=== PATIENT | male | born 1955 | race Caucasian/White ===

== ENCOUNTER 2016-06-22 06:37 | Outpatient (CLI) | payer BC ==
[~2016-06-22] VITALS: Ht 177.8 cm; Wt 91.8 kg
--- NOTE | ~2016-06-22 | HEMODYNAMI ---
PATIENT:PETEY RANGEL MEDICAL RECORD: [id number] : 53 LOCATION:D.CAT ADMISSION DATE: 06/22/16 Generatedon:06/22/20168:50 Patient name: PETEY RANGEL Patient #: [id number] : 1955 Date of study: 06/22/2016 Page: Of Hemodynamic Procedure Report Patient Data Patient Demographics Procedure consent was obtained First Name: PETEY Gender: Male Last Name: CLAIRE : 1955 Middle Initial: VAISHALI Age: 60 year(s) Patient #: [id number] Race: SSN: [id number] Additional ID: [id number] Contact details Address: [address] [address] State: [place] City: [place] Zip code: [address] Past Medical History Allergies Allergen Reaction Date Comments Reported Other allergy 06/22/2015 Codeine Other allergy 06/22/2016 codeine, hydrocodone Admission Admission Data Admission Date: 06/22/2016 Admission Time: 6:37 Arrival Date: 06/22/2016 Arrival Time: 8:30 Admit Source: Other Insurance Payor: Private health insurance Height (in.): 70 BSA: 2.1 (m2) Height (cm.): 177.8 BMI: 28.98 (kg/m2) Weight (lbs.): 202 Weight (kg.): 91.63 Lab Results Lab Result Date: 06/22/2016 Lab Result Time: 0:00 Biochemistry Name Units Result Min Max BUN mg/dl 15 --(--*-)-- 7 18 Creatinine mg/dl 1 --(--*-)-- 0.6 1.3 CBC Name Units Result Min Max Hemoglobin g/dl 14.4 --(*---)-- 13.5 17.5 Procedure Procedure Types Cath Procedure Diagnostic Procedure [facility] w/Coronaries PCI Procedure Coronary Stent Initial Procedure Description Procedure Date Procedure Date: 06/22/2016 Procedure Start Time: 8:28 Procedure End Time: 8:42 Procedure Staff Name Function Anuel Lane MD Performing Physician Bhumi Jerome RT Scrub Heidy Smith RN Nurse Cher Smith RT Monitor Indication Angina Procedure Data Cath Procedure Fluoroscopy Diagnostic fluoroscopy Total fluoroscopy Time: 5.1 time: 5.1 min min Diagnostic fluoroscopy Total fluoroscopy dose: dose: 1039 mGy 1039 mGy Contrast Material Contrast Material Type Amount (ml) Isovue 370 82 Entry Location Entry Primary Successful Side Size Upsize Upsize Entry Closure Daley ccessful Closure Location (Fr) 1 (Fr) 2 (Fr) Remarks Device Remarks Radial Right 6 Fr Mechanical artery Short Compression Estimated blood loss: 5 ml Diagnostic catheters Device Type Used For End Catheter Placement Terumo 5Fr Julio 110cm Multi-vessel catheter Angiography Procedure Complications No complications Procedure Medications Medication Administration Route Dosage Oxygen NC 2 l/min Heparin Flush Bag added to field 2 bags (1000units/500ml NS) Lidocaine 2% added to field 20 Radial Cocktail added to field 1 syringe (Verapomil 2mg/Nitro 400mcg/Heparin 1500units) Benadryl I.V. 50 mg Versed I.V. 1 mg Fentanyl I.V. 50 mcg Versed I.V. 1 mg Fentanyl I.V. 50 mcg Radial Cocktail I.A. 1 syringe (Verapomil 2mg/Nitro 400mcg/Heparin 1500units) Versed I.V. 1 mg Fentanyl I.V. 50 mcg Heparin Bolus I.V. 4000 units Versed I.V. 1 mg Fentanyl I.V. 50 mcg Fentanyl I.V. 50 mcg Hemodynamics Rest BSA: 2.1 (m2) HGB: 14.4 (g/dl) O2 Consumption: Estimated: 246.13 (ml/min) O2 Con sumption indexed: Estimated:117.2 (ml/min/m) Heart Rate: 70 (bpm) Pressure Samples Time Site Value (mmHg) Purpose Heart Use Rate(bpm) 8:30 LV 53/-12,0 Snapshot 70 Snapshots Pre Cath Intra NCS Post Cath Vital Signs Time Heart Resp SPO2 NIBP (mmHg) Rhythm Pain Sedation Rate (ipm) (%) Status Level (bpm) 8:18:33 68 40 100 136/76(118) NSR 0 (11) 10(A) , No pain 8:22:51 71 12 100 138/72(119) NSR 0 (11) 10(A) , No pain 8:27:09 65 55 100 120/68(100) NSR 0 (11) 10(A) , No pain 8:31:23 68 19 96 104/64(81) NSR 0 (11) 10(A) , No pain 8:35:31 72 16 95 114/64(87) NSR 0 (11) 9(A) , No pain 8:39:43 90 19 99 106/64(88) NSR 0 (11) 9(A) , No pain Medications Time Medication Route Dose Verified Delivered Reason Notes Effectiveness by by 8:22:48 Oxygen NC 2 l/min Anuel Heidy Per physician Domingo Smith RN 8:23:08 Heparin Flush added 2 bags Anuel Grafrey used for Bag to Domingo Lane MD procedure (1000units/500ml field NS) 8:23:15 Lidocaine 2% added 20ml Anuelcosme Agee used for to vial Domingo Lane MD procedure field 8:23:20 Radial Cocktail added 1 Anuel Anuel used for (Verapomil to syringe Domingo Lane MD procedure 2mg/Nitro field 400mcg/Heparin 1500units) 8:23:28 Benadryl I.V. 50 mg Anuel Heidy Per physician Domingo Smith RN 8:26:20 Versed I.V. 1 mg Anuel Heidy for sedation Domingo Smith RN 8:26:28 Fentanyl I.V. 50 mcg Anuel Heidy for sedation Domingo Smith RN 8:28:13 Versed I.V. 1 mg Anuel Heidy for sedation Domingo Smith RN 8:28:16 Fentanyl I.V. 50 mcg Anuel Heidy for sedation Domingo Smith RN 8:29:27 Radial Cocktail I.A. 1 Anuel Anuel for (Verapomil syringe Domingo Lane MD vasodilation 2mg/Nitro 400mcg/Heparin 1500units) 8:29:58 Versed I.V. 1 mg Anuel Heidy for sedation Domingo Smith RN 8:30:04 Fentanyl I.V. 50 mcg Anuel Heidy for sedation Domingo Smith RN 8:31:00 Fentanyl I.V. 50 mcg Anuel Heidy for sedation Domingo Smith RN 8:31:54 Versed I.V. 1 mg Anuel Heidy for sedation Domingo Smith RN 8:33:18 Heparin Bolus I.V. 4000 Anuel Louisecca for dose units Domingo Smith RN anticoagulation verified with dr lane 8:35:06 Fentanyl I.V. 50 mcg Anuel Louisecca for sedation Domingo Smith RN Procedure Log Time Note 8:00:34 Heidy Smith RN sent for patient. Start room use. 8:11:55 Informed consent obtained and on chart 8:12:02 Diagnostic Cath Status : Elective 8:12:43 Indication : Angina 8:12:53 Admit Source: Other 8:13:03 Arrival Date: 06/22/2016 8:30:00 AM 8:13:12 Insurance Payor : Private health insurance 8:13:25 Patient Height : 177.8 inches 8:13:30 Patient Weight : 91.63 lbs 8:13:40 Time tracking: Regular hours 8:13:44 Plan of Care:Hemodynamics will remain stable., Cardiac rhythm will remain stable., Comfort level will be maintained., Respiratory function will remain adequate., Patient/ family verbilizes understanding of procedure., Procedure tolerated without complication., Recovers from procedure without complications.. 8:13:48 Patient received from Outpatients to [facility] 1 Alert and oriented. Tansferred to table in Supine position. 8:13:49 Warm blankets applied, and amparo hugger turned on for patient comfort. 8:13:49 Correct patient and procedure confirmed by team. 8:13:50 ECG and BP/O2 sat monitors applied to patient. 8:17:18 Vital chart was started 8:19:45 Baseline sample Acquired. 8:19:48 Rhythm: sinus rhythm 8:19:49 Full Disclosure recording started 8:19:57 H&P Date Dictated: 06/19/2016 Within 30 days and on chart., H&P Addendum completed by physician on day of procedure. (MUST COMPLETE FOR ALL OUTPATIENTS). 8:19:58 Pre-procedure instructions explained to patient. 8:19:59 Pre-op teaching completed and patient verbalized understanding. 8:20:01 Family in waiting room. 8:20:02 Patient NPO since Midnight. 8:20:20 Patient allergic to Other allergycodeine, hydrocodone 8:22:48 Oxygen 2 l/min NC was given by Heidy Smith RN; Per physician; 8:23:08 Heparin Flush Bag (1000units/500ml NS) 2 bags added to field was given by Anuel Lane MD; used for procedure; 8:23:15 Lidocaine 2% 20ml vial added to field was given by Anuel Lane MD; used for procedure; 8:23:20 Radial Cocktail (Verapomil 2mg/Nitro 400mcg/Heparin 1500units) 1 syringe added to field was given by Anuel Lane MD; used for procedure; 8:23:28 Benadryl 50 mg I.V. was given by Heidy Smith RN; Per physician; 8:24:32 Is the patient allergic to Iodine/contrast media? No. 8:24:33 Was the patient premedicated? No 8:24:34 Is patient on blood thinner?Yes 8:24:36 ACC The patient was administered the following blood thiners within the last 24 hours: ACCPlavix 8:24:38 Patient diabetic? No. 8:24:41 Previous problem with sedation/anesthesia? No ? 8:24:43 Snore? Yes 8:24:45 Sleep apnea? No 8:24:47 Deviated septum? No 8:24:48 Opens mouth fully? Yes 8:24:49 Sticks out tongue? Yes 8:25:10 Airway obstruction? No ? 8:25:12 Dentures? No ? 8:25:15 Pre procedure: right dorsailis pedis pulse 1+ Palpable, but thready & weak; easily obliterated 8:25:18 Patient pain scale 0/10 ?. 8:25:23 IV patent on arrival in left forearm with 0.9% NaCl at [facility]. 8:25:40 Lab Result : BUN 15 mg/dl 8:25:40 Lab Result : Creatinine 1 mg/dl 8:25:40 Lab Result : Hemoglobin 14.4 g/dl 8:25:44 Lab results completed and on chart. 8:25:49 Right Radial & Right Groin area was prepped with chlora-prep and draped in sterile fashion 8:25:49 Alarms reviewed by Meghan Cummins 8:25:50 Sharps counted by scrub and verified by R.N. 8:25:51 Physician paged 8:25:54 Physician arrived 8::13 --------ALL STOP TIME OUT------ 8::14 Final Timeout: patient, procedure, and site verified with staff and physician. All members of the team are in agreement. 8:26:16 Right Radial & Right Groin site verified by team. 8::18 Physical assessment completed. ASA score P 2 - A patient with mild systemic disease as per Anuel Lane MD. 8::20 Versed 1 mg I.V. was given by Heidy Smith RN; for sedation; 8::22 Sedation plan: IV Moderate Sedation Versed, Fentanyl 8::28 Fentanyl 50 mcg I.V. was given by Heidy Smith RN; for sedation; 8::13 Versed 1 mg I.V. was given by Heidy Smith RN; for sedation; 8::16 Fentanyl 50 mcg I.V. was given by Heidy Smith RN; for sedation; 8::28 Zero performed for pressure channel P1 8:28:36 Procedure started. 8:28:41 Local anesthetic to right radial artery with Lidocaine 2% by Anuel Lane MD.INITIAL ACCESS ONLY 8:28:50 A 6 Fr Short sheath was inserted into the Right Radial artery 8:29:27 Radial Cocktail (Verapomil 2mg/Nitro 400mcg/Heparin 1500units) 1 syringe I.A. was given by Anuel Lane MD; for vasodilation; 8:29:38 A Terumo 5Fr Julio 110cm catheter was advanced over the wire and used for Multi-vessel Angiography. 8:29:58 Versed 1 mg I.V. was given by Heidy Smith RN; for sedation; 8:30:04 Fentanyl 50 mcg I.V. was given by Heidy Smith RN; for sedation; 8:30:09 LV hemodynamics recorded. 8:30:11 LV gram done using BRAR 8:30:15 EF : 60 % 8:30:19 LCA angiography performed. 8::22 Injector settings: Ml/sec: 3, Volume: 6, 8:30:25 Use device set Radial Dx 8:30:26 Acist Syringe opened to sterile field. 8:30:27 Cardinal Cath Pack opened to sterile field. 8:30:27 Bag Decanter opened to sterile field. 8:30:28 Terumo 6Fr Slender Glidesheath opened to sterile field. 8:30:28 St Satnam 260cm J .035 wire opened to sterile field. 8:30:28 Acist Hand Control opened to sterile field. 8:30:29 Acist Manifold opened to sterile field. 8:30:30 Tegaderm 4 x 4 opened to sterile field. 8:31:00 Fentanyl 50 mcg I.V. was given by Heidy Smith RN; for sedation; 8:31:44 Mendiola Whisper J 300cm 0.014 guide wire opened to sterile field. 8:31:45 College Book Renter BasixCompak Inflation Kit opened to sterile field. 8:31:54 Versed 1 mg I.V. was given by Heidy Smith RN; for sedation; 8:32:13 Cordis 6FR XBLAD 3.5 guide catheter opened to sterile field. 8:33:18 Heparin Bolus 4000 units I.V. was given by Heidy Smith RN; for anticoagulation; dose verified with dr lane 8:33:56 RCA angiography performed. 8:34:00 Injector settings: Ml/sec: 3, Volume: 6, 8:34:03 Catheter removed. 8:34:05 Proceeding to intervention. 8:34:13 6 Fr xblad 3.5 guide catheter was inserted over the wire 8:34:18 whisper wire advanced. 8:34:19 Wire advanced across lesion. 8:35:06 Fentanyl 50 mcg I.V. was given by Heidy Smith RN; for sedation; 8:36:23 Inflation number: 1 A [place] Sci [place] 2.5 X 15 balloon was prepped and advanced across the Mid LAD, then inflated to 6 JANNETH for 0:10 (min:sec). 8:36:51 Inflation number: 2 The [place] Sci [place] 2.5 X 15 balloon was reinflated across the Mid LAD, to 9 JANNETH for 0:10 (min:sec). 8:37:07 Balloon removed over the wire. 8:38:32 Inflation Number: 3 A CDB Infotektronic Resolute 2.5 X 14 stent was prepped and advanced across the Mid LAD. The stent was deployed at 17 JANNETH for 0:10 (min:sec). 8:38:57 Inflation number: 4 The stent balloon was then re-inflated across the Mid LAD to 19 JANNETH for 0:10 (min:sec). 8:40:36 Stent catheter was removed intact over wire. 8:40:37 Wire removed. 8:40:37 Guide catheter removed. 8:40:47 Terumo TR Band Standard opened to sterile field. 8:40:58 Sheath removed intact; hemostasis achieved with Mechanical Compression to the Right Radial artery. 8:41:00 Procedure ended.(Physican Out) 8:41:11 Fluoroscopy time 05.10 minutes. 8:41:15 Fluoroscopy dose: 1039 mGy 8:41:15 Flurop Dose total: 1039 8:41:19 Contrast amount:Isovue 370 82ml. 8:41:22 Sharps counted by scrub and verified by R.N. 8:41:24 Insertion/operative site no bleeding no hematoma. 8:41:27 TR band inflated with 10cc of air. 8:41:32 Post right radial artery:stable 8:41:34 Post Procedure Pulses reassessed and unchanged 8:41:37 Post procedure rhythm: unchanged. 8:41:39 Estimated blood loss: 5 ml 8:41:40 Post procedure instruction explained to patient.Patient verbalizes understanding. 8:41:41 Patient needs reinforcement of post procedure teaching. 8:41:47 Procedure type changed to Cath procedure, Diagnostic procedure, LHC, LHC w/Coronaries, PCI procedure, Coronary Stent Initial 8:41:48 Procedure and supply charges have been captured, reviewed, submitted and are correct. 8:41:52 Procedure Complication : No complications 8:41:53 Vital chart was stopped 8:41:54 See physician's report for complete and final results. 8:41:57 Report given to Post Procedure Room. 8:42:04 Patient transfered to Post Procedure Room with Stretcher. 8:42:06 Procedure ended. 8:42:06 Full Disclosure recording stopped 8:45:23 ACC-PCI Only Patient was given prescriptions, or instructed by Anuel Lane MD to start/continue the following medications upon discharge: Plavix 8:45:24 End room use (Document Last) Intervention Summary Intervention Notes Time ActionType Lesion and Equipment Action# Pressure Duration Attributes Used 8:36:23 Inflate Mid LAD [place] 1 6 00:10 balloon Sci [place] 2.5 X 15 balloon 8:36:51 Reinflate Mid LAD [place] 2 9 00:10 balloon Sci [place] 2.5 X 15 balloon 8:38:32 Place stent Mid LAD Medtronic 3 17 00:10 Resolute 2.5 X 14 stent 8:38:57 Reinflate Mid LAD Medtronic 4 19 00:10 stent Resolute balloon 2.5 X 14 stent Device Usage Item Name Manufacture Quantity Catalog Number Hospital Part Current Mini mal Lot# / Charge Number Stock Stock Serial# Code Terumo 5Fr Terumo 1 [id number] 806108 614641 5 Julio 110cm catheter Acist Acist 1 94229 925043 880264 921081 20 Syringe Medical Systems Inc Cardinal Cardinal 1 [id number] 634467 32868 012244 5 Cath Pack Health Bag Microtek 1 2002S 164771 20902 285637 5 [employer] Inc. Terumo 6Fr Terumo 1 [id number] 510165 443470 293769 [address] St Satnam 1 568858 570733 761125 336858 30 260cm J .035 wire Acist Hand Acist 1 66437 492223 861674 069916 5 Control Medical Systems Inc Acist Acist 1 50866 849999 633450 404275 5 Manifold Medical Systems Inc Tegaderm 4 3M 1 1626W 434947 180065 333240 5 x 4 Mendiola Mendiola 1 [id number] 822611 252125 667130 5 Whisper J Vascular 300cm 0.014 guide wire Merit Merit 1 CT2126 148117 383346 447608 15 Pulmocide Medical Inflation Kit Cordis 6FR Cardinal 1 [id number] 092201 327547 392106 10 XBLAD 3.5 Health guide catheter [place] Sci [place] 1 [id number] 760169 464712 838285 1 [id number] [place] Scientific 2.5 X 15 balloon Medtronic Medtronic 1 [id number] 556515 662663 5 [id number] Resolute 2.5 X 14 stent Terumo TR Terumo 1 [id number] 618652 082764 886215 40 Band Standard Signature Audit [place] Stage Time Signature Unsigned Intra-Procedure 06/22/2016 Cher Smith 8:49:48 AM RT(R) Signatures Monitor : Cher Smith RT Signature : Date : Time : [id number] [place] [address]
[~2016-06-22 06:37] MED LIST: BAYER CHEWABLE81 MG PO; CELEXA20 MG PO; FISH OIL 1,0001 CA1 PO; FLAXSEED OIL1000 MG PO; GEMFIBROZIL600 MG PO; LEVOTHROID75 MCG PO; MULTI-DAY VITAM1 TAB PO; NITROQUICK0.4 MG; NITROQUICK0.4 MG SL; PEPCID AC20 MG PO; PLAVIX75 MG PO; PRAVACHOL20 MG PO; PREVACID15 MG PO; PROBIOTIC1 EAC1 PO; REMERON30 MG/UDTA PO; ULTRAM50 MG PO
[2016-06-22] MEDS ORDERED: RANEXA500 MG PO (07:20)
[2016-06-22] MEDS ORDERED: [UNRECOGNIZED DRUG - OTHER] (07:21)
[2016-06-22 07:26] VITALS: BP 114/70; Ht 177.8 cm; Wt 91.8 kg
[2016-06-22 07:32] LABS: BASOPHILS 0.6 % (0.0-2.0); EOSINOPHILS 2.4 % (0-7); HEMATOCRIT 42.3 % (42.0-54.0); HEMOGLOBIN 14.4 g/dL (13.5-17.5); IMMATURE GRANULOCYTES 0.2 % (0-5); MCH 32.8 pg (26.0-34.0); MCV 96.4 fL (80.0-100.0); MEAN PLATELET VOLUME 9.6 fL (7.4-10.4); MONOCYTES 10.9 % (2-11); NEUTROPHILS 49.9 % (40-80); PLATELET COUNT 218 10x3/uL (130-400); RBC 4.39 10x6/uL (4.20-6.10); RDW 12.6 % (11.5-14.5); WBC 5.1 10x3/uL (4.8-10.8)
[2016-06-22 07:42] LABS: CALC OSMOLALITY 281 mosm/kg (275-300); CALCIUM 9.3 mg/dL (8.5-10.1); CARBON DIOXIDE 34.1 mmol/L (21.0-32.0); CHLORIDE - SERUM 104 mmol/L (98-107); GLUCOSE 91 mg/dL (74-106); SODIUM 141 mmol/L (136-145); UREA NITROGEN 15 mg/dL (7-18); eGFR NON AFRICAN AMERICAN 81 mL/min (90-120)
--- NOTE | 2016-06-22 09:05 | NUR ---
0905 HR 64 SR WITH CHEST PAIN DENIED. BP 121/68 TR BAND TO R/WRIST CDI NO BLEEDING NO HEMATOMA NOTED. INSTRUCTED PATIENT TO KEEP R/ARM STRAIGHT NO BENDING OR FLEXING 0930 VSS WITH CHEST PAIN DENIED TOLERATING ORAL FLUIDS. TR BAND TO R/WRIST CDI NO BLEEDING NO HEMATOMA NOTED FAMILY AT SIDE
--- NOTE | 2016-06-22 09:48 | NUR ---
SITTING WITH HOB UP 30 DEGREES TALKING TO FAMILY VSS WITH CHEST PAIN DENIED TR BAND TO R/WRIST CDI NO BLEEDING NO HEMATOMA NOTED WILL MONITOR
--- NOTE | 2016-06-22 10:45 | NUR ---
NO CHANGE IN ASSESSMENT TR BAND REMAINS CDI NO BLEEDING NO HEMATOMA NOTED FAMILY SIDE
--- NOTE | 2016-06-22 11:45 | NUR ---
1145 RESTING QUIETLY WITH EYES CLOSED NO DISTRESS NOTED VSS TR BAND TO R/WRIST CDI NO BLEEDING NO HEMATOMA NOTED
--- NOTE | 2016-06-22 12:22 | NUR ---
PATIENT SLEEPING QUIETLY WITH NO DISTRESS NOTED. 4 CC AIR REMOVED FROM TR BAND WITH NO BLEEDING NO HEMATOMA NOTED. CHEST PAIN IS DENIED
--- NOTE | 2016-06-22 12:47 | NUR ---
PIV REMOVED FROM LEFT ARM WITH DRESSING APPLIED. PATIENT UP TO BATHROOM VOIDS WITH OUT C/O
--- NOTE | 2016-06-22 12:58 | NUR ---
VERBAL AND WRITTEN DISCHARGE GONE OVER WITH PATIENT AND BOTH VERBALIZE UNDERSTANDING. TR BAND REMOVED WITH DRESSING APPLIED NO BLEEDING NO HEMATOMA NOTED CHEST PAIN IS DENIED LEFT VIA WC TO [facility] FOR TO TRANSPORT HOME
--- NOTE | 2016-06-25 14:16 | OP ---
PATIENT NAME: PETEY RANGEL MEDICAL RECORD: [id number] :53 LOCATION:D.CAT ADMISSION DATE: SURGEON: ABDI BETANCOURT MD DATE OF OPERATION: 06/22/2016 PROCEDURES: 1. PTCA stent LAD. 2. Left heart catheterization. 3. Selective coronary angiography. 4. Left ventriculogram. INDICATION: Angina and coronary artery disease. PROCEDURE IN DETAIL: After informed consent was obtained and after detailed explanation of risks, benefits as well as alternative therapies, the patient elected to proceed with angiogram and angioplasty. The right radial area was prepped and draped in normal sterile fashion. The right radial artery was cannulated via modified Seldinger technique with placement of 6-Moldovan sheath. All catheters were exchanged through this sheath. FINDINGS: The left ventriculogram was performed in a standard 30-degree BRAR view. It reveals good cardiac wall motion throughout all segments. Overall ejection fraction is 60%. SELECTIVE CORONARY ANGIOGRAPHY: 1. Left main is with no significant angiographic disease. 2. Left anterior descending has previously placed stents. There is an area of 95% in-stent restenosis. 3. Left circumflex has mild irregularities, but no flow-limiting stenosis. 4. Right coronary has at least a 70% stenosis in the proximal vessel. PTCA STENT OF THE LAD: The stent used is a 2.5 x 14 mm Resolute. Result was 0% residual stenosis. OVERALL IMPRESSION: Successful PTCA stent of the LAD going from 95% initial stenosis to 0% residual. TRANSINT:[id number] Voice Confirmation ID: [id number] DOCUMENT ID: [id number] ABDI BETANCOURT MD at 1416 CC: [id number] DICTATION DATE: 06/22/16 0845 OPERATIONS EXPERT: 06/22/16 1958 [facility] CLI 06/22/16 [facility] [address] [id number]
== END 2016-06-22 13:01 | disposition home or self-care (01) ==
LOC: D.CATH 06:37
PROVIDERS: Internal Medicine Interventional Cardiology
DX: I25.110 Atherosclerotic heart disease of native coronary artery with unstable angina pectoris (principal); I10 Essential (primary) hypertension; E78.5 Hyperlipidemia, unspecified; K21.9 Gastro-esophageal reflux disease without esophagitis

== ENCOUNTER 2016-06-25 06:38 | Outpatient (CLI) | payer BC ==
[~2016-06-25] VITALS: Ht 177.8 cm; Wt 90.9 kg
--- NOTE | ~2016-06-25 | HEMODYNAMI ---
PATIENT:PETEY RANGEL MEDICAL RECORD: [id number] : 53 LOCATION:[facility] ADMISSION DATE: 06/25/16 Generatedon:06/25/20169:29 Patient name: PETEY RANGEL Patient #: [id number] : 1955 Date of study: 06/25/2016 Page: Of Hemodynamic Procedure Report Patient Data Patient Demographics Procedure consent was obtained First Name: PETEY Gender: Male Last Name: CLAIRE : 1955 Middle Initial: VAISHALI Age: 61 year(s) Patient #: [id number] Race: SSN: [id number] Additional ID: [id number] Contact details Address: [place] [address] State: [place] City: [place] Zip code: [address] Past Medical History Allergies Allergen Reaction Date Comments Reported Other allergy 06/22/2015 Codeine Other allergy 06/22/2016 codeine, hydrocodone Admission Admission Data Admission Date: 06/25/2016 Admission Time: 6:38 Admit Source: Other Lab Results Lab Result Date: 06/25/2016 Lab Result Time: 0:00 Biochemistry Name Units Result Min Max Creatinine mg/dl 0.9 --(-*--)-- 0.6 1.3 CBC Name Units Result Min Max Hemoglobin g/dl 14.4 --(*---)-- 13.5 17.5 Procedure Procedure Types Cath Procedure Diagnostic Procedure FFR/IVUS Intra-Coronary IVUS Initial PCI Procedure Coronary Stent Initial Procedure Description Procedure Date Procedure Date: 06/25/2016 Procedure Start Time: 9:08 Procedure End Time: 9:28 Procedure Staff Name Function Anuel Lane MD Performing Physician Roderick Izquierdo RT Scrub Mony Long RN Nurse Kyle Garcia RT Drywall Sprayer Michaela Lacey RT Monitor Procedure Data Cath Procedure Fluoroscopy Diagnostic fluoroscopy Total fluoroscopy Time: 3.5 time: 3.5 min min Diagnostic fluoroscopy Total fluoroscopy dose: 281 dose: 281 mGy mGy Contrast Material Contrast Material Type Amount (ml) Isovue 300 57 Entry Location Entry Primary Successful Side Size Upsize Upsize Entry Closure Daley ccessful Closure Location (Fr) 1 (Fr) 2 (Fr) Remarks Device Remarks Radial Right 6 Fr Mechanical artery Short Compression Estimated blood loss: 10 ml Procedure Complications No complications Procedure Medications Medication Administration Route Dosage Oxygen NC 2 l/min Benadryl I.V. 50 mg Lidocaine 2% added to field 20 Heparin Flush Bag added to field 2 bags (1000units/500ml NS) 0.9% NaCl I.V. 100 ml/hr Versed I.V. 2 mg Fentanyl I.V. 100 mcg Heparin Bolus I.V. 4000 units Versed I.V. 2 mg Fentanyl I.V. 100 mcg Fentanyl I.V. 25 mcg Hemodynamics Rest Heart Rate: 73 (bpm) Snapshots Pre Cath Intra NCS Post Cath Vital Signs Time Heart Resp SPO2 etCO2 [id number] NIBP (mmHg) Rhythm Pain Sedation Rate (ipm) (%) (mmHg) (mmHg) Status Level (bpm) 8:53:10 70 17 97 0 0 127/75(112) NSR 0 (11) 10(A) , No pain 8:57:18 71 19 96 0 0 141/82(122) NSR 0 (11) 10(A) , No pain 9:01:34 71 24 97 0 0 126/76(107) NSR 0 (11) 10(A) , No pain 9:05:48 65 17 99 0 0 122/65(103) NSR 0 (11) 10(A) , No pain 9:09:58 66 16 97 0 0 116/68(101) NSR 0 (11) 9(A) , No pain 9:14:08 69 17 93 0 0 109/64(84) NSR 0 (11) 9(A) , No pain 9:18:14 66 16 93 0 0 109/67(82) NSR 0 (11) 9(A) , No pain 9:22:19 83 16 95 0 0 130/74(103) NSR 0 (11) 9(A) , No pain 9:26:33 72 10 96 0 0 110/70(90) NSR 0 (11) 10(A) , No pain Medications Time Medication Route Dose Verified Delivered Reason Notes Effectiveness by by 8:57:57 Oxygen NC 2 Anuel Buffie used for l/min Domingo Long RN procedure 8:58:04 Benadryl I.V. 50 mg Anuel Buffie used for Domingo Long RN procedure 9:05:15 Lidocaine 2% added 20ml Anuel Buffie for local to vial Domingo Long RN anesthetic field 9:05:21 Heparin Flush added 2 Anuel Buffie used for Bag to bags Domingo Long RN procedure (1000units/500ml field NS) 9:05:36 0.9% NaCl I.V. 100 Anuel Buffie Per physician ml/hr Domingo Long RN 9:07:44 Versed I.V. 2 mg Anuel Buffie for sedation Domingo Long RN 9:07:50 Fentanyl I.V. 100 Anuel Buffie for sedation mcg Domingo Long RN 9:11:43 Heparin Bolus I.V. 4000 Anuel Buffie for verifie d units Domingo Long RN anticoagulation with dr lane 9:15:43 Versed I.V. 2 mg Anuel Buffie for sedation Domingo Long RN 9:15:47 Fentanyl I.V. 100 Anuel Buffie for sedation mcg Domingo Long RN 9:20:30 Fentanyl I.V. 25 Anuel Buffie for sedation mcg Domingo Long RN Procedure Log Time Note 8:32:04 Admit Source: Other 8:33:35 ACC Patient presents with Stable Angina CCS Anginal Class 2--Slight limitation of ordinary activity. 8:33:38 ACCPatient has been prescribed/administered the following anti-anginal medication within the last 2 weeks: None 8:33:42 Kyle Garcia RT(R) sent for patient. Start room use. 8:33:44 Time tracking: Regular hours 8:33:48 Plan of Care:Hemodynamics will remain stable., Cardiac rhythm will remain stable., Comfort level will be maintained., Respiratory function will remain adequate., Patient/ family verbilizes understanding of procedure., Procedure tolerated without complication., Recovers from procedure without complications.. 8:43:03 Patient received from Outpatients to [facility] 2 Alert and oriented. Tansferred to table in Supine position. 8:43:05 Warm blankets applied, and amparo hugger turned on for patient comfort. 8:43:06 Correct patient and procedure confirmed by team. 8:43:07 Signed procedure consent form obtained from patient. 8:43:08 ECG and BP/O2 sat monitors applied to patient. 8:51:59 Vital chart was started 8:52:00 Full Disclosure recording started 8:52:04 Rhythm: sinus rhythm 8:54:12 H&P Date Dictated: 06/25/2016 New H&P dictated by physician.. 8:54:14 Pre-procedure instructions explained to patient. 8:54:14 Pre-op teaching completed and patient verbalized understanding. 8:54:16 Family in waiting room. 8:54:26 Patient NPO since Midnight. 8:54:39 Is the patient allergic to Iodine/contrast media? No. 8:54:42 Is patient on blood thinner?Yes 8:54:53 ACC The patient was administered the following blood thiners within the last 24 hours: ACCPlavix 8:54:59 Patient diabetic? No. 8:57:00 Previous problem with sedation/anesthesia? No ? 8:57:02 Snore? No 8:57:04 Sleep apnea? No 8:57:05 Deviated septum? No 8:57:06 Opens mouth fully? Yes 8:57:07 Sticks out tongue? Yes 8:57:09 Airway obstruction? No ? 8:57:11 Dentures? No ? 8:57:15 Pre procedure: right dorsailis pedis pulse 2+ Normal; easily identifiable; not easily obliterated 8:57:18 Modified Rakesh's test Ulnar < 7 seconds 8:57:20 Patient pain scale 0/10 ?. 8:57:24 IV patent on arrival in left hand with 0.9% NaCl at KVO. 8:57:55 Lab Result : Creatinine 0.9 mg/dl 8:57:55 Lab Result : Hemoglobin 14.4 g/dl 8:57:57 Oxygen 2 l/min NC was given by Mony Long RN; used for procedure; 8:57:58 Lab results completed and on chart. 8:58:01 Right Radial & Right Groin area was prepped with chlora-prep and draped in sterile fashion 8:58:04 Benadryl 50 mg I.V. was given by Mony Long RN; used for procedure; 8:58:05 Alarms reviewed by R. N. 8:58:05 Sharps counted by scrub and verified by R.N. 8:58:14 Use device set Radial PCI 8:58:15 Acist Syringe opened to sterile field. 8:58:16 Acist Hand Control opened to sterile field. 8:58:16 Bag Decanter opened to sterile field. 8:58:16 Cardinal Cath Pack opened to sterile field. 8:58:17 Merit BasixCompak Inflation Kit opened to sterile field. 8:58:18 Terumo 6Fr Slender Glidesheath opened to sterile field. 8:58:18 St Satnam 260cm Straight .035 wire opened to sterile field. 8:58:19 Acist Manifold opened to sterile field. 8:58:22 Tegaderm 4 x 4 opened to sterile field. 8:58:37 [place] Whisper J 300cm 0.014 guide wire opened to sterile field. 8:59:11 Baseline sample Acquired. 9:03:44 Physician paged 9:05:15 Lidocaine 2% 20ml vial added to field was given by Mony Long RN; for local anesthetic; 9:05:21 Heparin Flush Bag (1000units/500ml NS) 2 bags added to field was given by Mony Long RN; used for procedure; 9:05:22 Final Timeout: patient, procedure, and site verified with staff and physician. All members of the team are in agreement. 9:05:26 Right Radial site verified by team. 9:05:34 Physical assessment completed. ASA score P 2 - A patient with mild systemic disease as per Anuel Lane MD. 9:05:36 0.9% NaCl 100 ml/hr I.V. was given by Mony Long RN; Per physician; 9:05:37 Sedation plan: IV Moderate Sedation Versed, Fentanyl 9:06:37 Zero performed for pressure channel P1 9:06:42 Zero performed for pressure channel P1 9:07:44 Versed 2 mg I.V. was given by Mony Long RN; for sedation; 9:07:50 Fentanyl 100 mcg I.V. was given by Mony Long RN; for sedation; 9:08:41 Procedure started. 9:08:47 Local anesthetic to right radial artery with Lidocaine 2% by Anuel Lane MD.INITIAL ACCESS ONLY 9:09:27 A 6 Fr Short sheath was inserted into the Right Radial artery 9:09:43 Medtronic Launcher 6Fr AR 1.0 SH guide catheter opened to sterile field. 9:09:43 [place] IVUS Catheter opened to sterile field. 9:10:38 6 Fr AR 1 SH guide catheter was inserted over the wire 9:11:33 Whisper wire advanced. 9:11:43 Heparin Bolus 4000 units I.V. was given by Mony Long RN; for anticoagulation; verified with dr lane 9:12:19 IVUS catheter advanced over wire. 9:13:23 Wire removed. contaminated. 9:13:25 IVUS removed 9:13:30 New Whisper wire advanced. 9:13:56 IVUS catheter advanced over wire. 9:14:44 IVUS pass to RCA lesion performed. 9:15:43 Versed 2 mg I.V. was given by Mony Long RN; for sedation; 9:15:47 Fentanyl 100 mcg I.V. was given by Mony Long RN; for sedation; 9:17:35 IVUS catheter removed over wire. 9:18:28 ACC PCI Site: pRCA has 70% stenosis. 9:18:30 ACC Pre-intervention TA Flow is 3. 9:18:56 Inflation Number: 1 A Medtronic Resolute 4.0 X 26 stent was prepped and advanced across the Prox RCA. The stent was deployed at 11 JANNETH for 0:19 (min:sec). 9:19:36 ACC Post-intervention TA Flow is 3. 9:19:38 Stent catheter was removed intact over wire. 9:19:38 Wire removed. 9:19:39 Guide catheter removed. 9:19:58 Terumo TR Band Standard opened to sterile field. 9:20:19 Sheath removed intact; hemostasis achieved with Mechanical Compression to the Right Radial artery. 9:20:27 Procedure ended.(Physican Out) 9:20:30 Fentanyl 25 mcg I.V. was given by Mony Long RN; for sedation; 9:20:39 Fluoroscopy time 03.50 minutes. 9:20:42 Flurop Dose total: 281 9:20:42 Fluoroscopy dose: 281 mGy 9:20:47 Contrast amount:Isovue 300 57ml. 9:20:49 Sharps counted by scrub and verified by R.N. 9:20:53 TR band inflated with 12cc of air. 9:20:54 Insertion/operative site no bleeding no hematoma. 9:21:03 Post right radial artery:stable, clean and dry 9:21:06 Post Procedure Pulses reassessed and unchanged 9:21:12 Post-procedure physical assessment completed. ASA score P 2 - A patient with mild systemic disease as per Anuel Lane MD. 9:21:14 Post procedure rhythm: unchanged. 9:21:17 Estimated blood loss: 10 ml 9:21:18 Post procedure instruction explained to patient.Patient verbalizes understanding. 9:21:19 Patient needs reinforcement of post procedure teaching. 9:21:24 Procedure type changed to Cath procedure, Diagnostic procedure, FFR/IVUS, Intra-Coronary IVUS Initial, PCI procedure, Coronary Stent Initial 9:21:41 Procedure Complication : No complications 9:21:43 See physician's report for complete and final results. 9:22:09 [place] Whisper J 300cm 0.014 guide wire opened to sterile field. 9:28:23 Procedure and supply charges have been captured, reviewed, submitted and are correct. 9:28:24 Vital chart was stopped 9:28:27 Report given to Post Procedure Room. 9:28:33 Patient transfered to Post Procedure Room with Stretcher. 9:28:35 Procedure ended. 9:28:35 Full Disclosure recording stopped 9:29:05 End room use (Document Last) Intervention Summary Intervention Notes Time ActionType Lesion and Equipment Action# Pressure Duration Attributes Used 9:18:56 Place stent Prox RCA Medtronic 1 11 00:19 Resolute 4.0 X 26 stent Device Usage Item Name Manufacture Quantity Catalog Hospital Part Current Minimal Lot# / Number Charge Number Stock Stock Serial# Code Acist Acist 1 50123 129215 819457 [id number] 20 Syringe Medical Systems Inc Acist Hand Acist 1 26147 075936 606219 199313 5 Control Medical Systems Inc Bag Microtek 1 2002S 961138 50953 061902 5 Decanter Medical Inc. Cardinal Cardinal [address] 563217 85252 372155 5 Cath [facility] 1 [id number] 959682 537402 932591 15 TE2 Medical Inflation Kit Terumo 6Fr Terumo 1 [id number] 404093 614634 093827 [address] Satnam 1 131014 186867 434071 367171 1 260cm Straight .035 wire Acist Acist 1 94087 543230 224674 478006 5 [facility] [employer] Inc Tegaderm 4 3M 1 [id number] 309545 123282 844044 5 x 4 Mendiola Mendiola 2 [id number] 326400 608711 089887 5 Whisper J Vascular 300cm 0.014 guide wire Medtronic Medtronic 1 [id number] 264116 28617 882085 1 Launcher 6Fr AR 1.0 SH guide catheter [place] 1 [id number] 101622 459599 885181 8 [place] IVUS Catheter Medtronic Medtronic 1 [id number] 409360 243695 0 [id number] Resolute 4.0 X 26 stent Terumo TR Terumo 1 [id number] 912833 266654 204415 40 Band Standard Signature Audit [place] Stage Time Signature Unsigned Intra-Procedure 06/25/2016 Michaela 9:29:18 AM Counts RT(R) Signatures Monitor : Michaela Signature : Counts RT Date : Time : [address] [id number]
[~2016-06-25 06:38] MED LIST changes: +RANEXA500 MG PO; +[UNRECOGNIZED DRUG - OTHER]
[2016-06-25 07:55] VITALS: BP 119/74; Ht 177.8 cm; Wt 90.9 kg
[2016-06-25 08:12] LABS: BASOPHILS 0.4 % (0.0-2.0); EOSINOPHILS 4.1 % (0-7); HEMATOCRIT 41.9 % (42.0-54.0); HEMOGLOBIN 14.4 g/dL (13.5-17.5); LYMPHOCYTES 35.5 % (15-50); MCH 32.7 pg (26.0-34.0); MCHC 34.4 g/dL (31.0-37.0); MCV 95.2 fL (80.0-100.0); MEAN PLATELET VOLUME 10.1 fL (7.4-10.4); MONOCYTES 8.6 % (2-11); NEUTROPHILS 51.4 % (40-80); PLATELET COUNT 212 10x3/uL (130-400); RDW 12.6 % (11.5-14.5); WBC 5.4 10x3/uL (4.8-10.8)
[2016-06-25 08:48] LABS: CALC OSMOLALITY 276 mosm/kg (275-300); CARBON DIOXIDE 27.6 mmol/L (21.0-32.0); CHLORIDE - SERUM 106 mmol/L (98-107); CREATININE - SERUM 0.9 mg/dL (0.6-1.3); GLUCOSE 91 mg/dL (74-106); POTASSIUM - SERUM 4.4 mmol/L (3.5-5.1); SODIUM 138 mmol/L (136-145); UREA NITROGEN 14 mg/dL (7-18); eGFR NON AFRICAN AMERICAN > 90 mL/min (90-120)
--- NOTE | 2016-06-25 09:56 | NUR ---
0945 SITTING UP IN BED, ROOM AIR WITH NO RESP DISTRESS. NSR RATE 70 W NO C/O CHEST PAIN. PULSES PALP X 4. R WRIST TR BAND C/D/I WITH NO HEMATOMA OR BLEEDING. AT BEDSIDE.
--- NOTE | 2016-06-25 11:16 | NUR ---
1030 SITTING UP EATING TURKEY SANDWICH, ALL VITALS REMAIN WNL. R WRIST TR BAND C/D/I WITH NO HEMATOMA OR BLEEDING. AT SIDE.
--- NOTE | 2016-06-25 12:33 | NUR ---
AMBULATED TO BATHROOM TO VOID, BACK TO BEDSIDE. R WRIST REMAINS C/D/I WITH NO HEMATOMA OR BLEEDING.
--- NOTE | 2016-06-25 13:29 | NUR ---
2CC AIR REMOVED FROM R WRIST TR BAND. LEFT PIV REMOVED WITH BANDAID APPLIED. UP TO BEDSIDE TO DRESS WITH ASSIST FROM .
--- NOTE | 2016-06-25 13:32 | NUR ---
2CC AIR REMOVED FROM R WRIST TR BAND
--- NOTE | 2016-06-25 13:43 | NUR ---
TR BAND REMOVED AND TEGADERM APPLIED. NO BLEEDING OR HEMATOMA NOTED. D/C INSTRUCTIONS DISCUSSED WITH PATIENT AND AT BEDSIDE. WHEELED DOWN VIA WHEELCHAIR BY CATH TEAM.
--- NOTE | 2016-06-25 14:16 | OP ---
PATIENT NAME: PETEY RANGEL MEDICAL RECORD: [id number] :53 LOCATION:D.CAT ADMISSION DATE: SURGEON: ABDI BETANCOURT MD DATE OF OPERATION: 06/25/2016 PROCEDURES: 1. PTCA stent, RCA. 2. Intravascular ultrasound, RCA. 3. Selective coronary angiography. INDICATION: Angina and coronary artery disease. PROCEDURE IN DETAIL: After informed consent was obtained and after detailed explanation of risks, benefits as well as alternative therapies, the patient elected to proceed with angiogram and angioplasty. The right radial area was prepped and draped in normal sterile fashion. The right radial artery was cannulated via modified Seldinger technique with placement of 6-English sheath. All catheters exchanged through this sheath. FINDINGS: The right coronary artery has 65% to 70% stenosis throughout the mid vessel confirmed by intravascular ultrasound. This was addressed with a 4.0 x 26 mm Resolute stent. Result was 0% residual stenosis. OVERALL IMPRESSION: Successful percutaneous transluminal coronary angioplasty stent of the right coronary artery going from 65% to 70% initial stenosis to 0% residual. TRANSINT:[id number] Voice Confirmation ID: [id number] DOCUMENT ID: [id number] ABDI BETANCOURT MD at 1416 CC: [id number] DICTATION DATE: 06/25/16920 CHAIN HOOKER: 06/25/16 1102 DEP CLI 06/25/[address] [address]
== END 2016-06-25 13:44 | disposition home or self-care (01) ==
LOC: D.CATH 06:38
PROVIDERS: Internal Medicine Interventional Cardiology
DX: I25.10 Atherosclerotic heart disease of native coronary artery without angina pectoris (principal); I10 Essential (primary) hypertension; E78.5 Hyperlipidemia, unspecified

== ENCOUNTER → 2016-08-28 08:28 | Outpatient (CLI) | payer BC ==
[2016-06-25 07:55] VITALS: BMI 28.7
== END | disposition home or self-care (01) ==
LOC: D.RAD 08-23 09:00
DX: R10.9 Unspecified abdominal pain (principal)

== ENCOUNTER 2016-10-08 07:59 | Outpatient (CLI) | payer BC ==
[2016-06-25 07:55] VITALS: BMI 28.7
--- NOTE | ~2016-10-08 | HEMODYNAMI ---
PATIENT:PETEY RANGEL MEDICAL RECORD: [id number] : 53 LOCATION:DTK ADMISSION DATE: 10/08/16 Generatedon:10/08/201612:51 Patient name: PETEY RANGEL Patient #: [id number] : 1955 Date of study: 10/08/2016 Page: Of Hemodynamic Procedure Report Patient Data Patient Demographics Procedure consent was obtained First Name: PETEY Gender: Male Last Name: CLAIRE : 1955 [facility] Initial: VAISHALI Age: 61 year(s) Patient #: [id number] Race: SSN: [id number] Additional ID: [id number] Contact details Address: [place] [address] State: [place] City: [place] Zip code: [address] Past Medical History Allergies Allergen Reaction Date Comments Reported Other allergy 06/22/2015 Codeine Other allergy 06/22/2016 codeine, hydrocodone Admission Admission Data Admission Date: 10/08/2016 Admission Time: 7:59 Procedure Procedure Types Cath Procedure Diagnostic Procedure LHC [facility] w/Coronaries Right Heart PCI Procedure PTCA Initial Miscellaneous Procedures Moderate Sedation up to 15 minutes Procedure Description Procedure Date Procedure Date: 10/08/2016 Procedure Start Time: 12:34 Procedure End Time: 12:50 Procedure Staff Name Function Anuel Lane MD Performing Physician Kyle Garcia RT Scrub Heidy Smith RN Nurse Lance Martin RT Monitor Andres Barillas RN Payroll And Benefits Analyst Procedure Data Cath Procedure Fluoroscopy Diagnostic fluoroscopy Total fluoroscopy Time: 4.5 time: 4.5 min min Diagnostic fluoroscopy Total fluoroscopy dose: dose: 1715 mGy 1715 mGy Contrast Material Contrast Material Type Amount (ml) Isovue 300 120 Entry Location Entry Primary Successful Side Size Upsize Upsize Entry Closure Daley ccessful Closure Location (Fr) 1 (Fr) 2 (Fr) Remarks Device Remarks Radial Right 6 Fr Mechanical artery Short Compression Estimated blood loss: 10 ml Diagnostic catheters Device Type Used For End Catheter Placement Terumo 5Fr Cumberland 110cm Procedure catheter Procedure Complications No complications Procedure Medications Medication Administration Route Dosage Oxygen NC 2 l/min Heparin Flush Bag added to field 2 bags (1000units/500ml NS) Lidocaine 2% added to field 20 Radial Cocktail added to field 1 syringe (Verapomil 2mg/Nitro 400mcg/Heparin 1500units) Plavix P.O. 75 mg Radial Cocktail I.A. 1 syringe (Verapomil 2mg/Nitro 400mcg/Heparin 1500units) Heparin Bolus I.V. 4000 units Versed I.V. 1 mg Fentanyl I.V. 50 mcg Versed I.V. 1 mg Fentanyl I.V. 50 mcg Versed I.V. 1 mg Fentanyl I.V. 50 mcg Versed I.V. 1 mg Fentanyl I.V. 50 mcg Versed I.V. 1 mg Fentanyl I.V. 50 mcg Hemodynamics Rest Heart Rate: 58 (bpm) Pressure Samples Time Site Value (mmHg) Purpose Heart Use Rate(bpm) 12:40 AO 91/48(66) Snapshot 67 Snapshots Pre Cath Intra NCS Post Cath Vital Signs Time Heart Resp SPO2 NIBP (mmHg) Rhythm Pain Sedation Rate (ipm) (%) Status Level (bpm) 12:23:45 60 16 98 128/72(106) NSR 0 (11) 10(A) , No pain 12:27:57 63 16 97 122/72(101) NSR 0 (11) 10(A) , No pain 12:32:07 57 16 99 109/71(86) NSR 0 (11) 10(A) , No pain 12:36:15 72 16 96 101/63(79) NSR 0 (11) 10(A) , No pain 12:40:19 71 18 96 102/66(85) NSR 0 (11) 10(A) , No pain 12:44:27 72 17 96 101/56(75) NSR 0 (11) 9(A) , No pain 12:48:32 81 19 96 100/61(78) NSR 0 (11) 9(A) , No pain Medications Time Medication Route Dose Verified Delivered Reason Note s Effectiveness by by 12:23:26 Oxygen NC 2 l/min Anuel Moody Per physician Domingo Smith RN 12:23:33 Heparin Flush added 2 bags Anuel Agee used for Bag to Domingo Lane MD procedure (1000units/500ml field NS) 12:23:40 Lidocaine 2% added 20ml Anuel Grafrey used for to vial Domingo Lane MD procedure field 12:23:47 Radial Cocktail added 1 Anuel Agee used for (Verapomil to syringe Domingo Lane MD procedure 2mg/Nitro field 400mcg/Heparin 1500units) 12:23:59 Plavix P.O. 75 mg Anuel Heidy for Domingo Smith RN antiplatelet therapy 12:30:45 Versed I.V. 1 mg Anuel Heidy for sedation Domingo Smith RN 12:30:54 Fentanyl I.V. 50 mcg Anuel Heidy for sedation Domingo Smith RN 12:32:47 Versed I.V. 1 mg Anuel Heidy for sedation Domingo Smith RN 12:33:00 Fentanyl I.V. 50 mcg Anuel Heidy for sedation Domingo Smith RN 12:35:08 Versed I.V. 1 mg Anuel Heidy for sedation Domingo Smith RN 12:35:12 Fentanyl I.V. 50 mcg Anuel Heidy for sedation Domingo Smith RN 12:35:48 Radial Cocktail I.A. 1 Anuel Anuel for (Verapomil syringe Domingo Lane MD vasodilation 2mg/Nitro 400mcg/Heparin 1500units) 12:37:05 Versed I.V. 1 mg Anuel Heidy for sedation Domingo Smith RN 12:37:15 Fentanyl I.V. 50 mcg Anuel Heidy for sedation Domingo Smith RN 12:39:00 Versed I.V. 1 mg Anuel Heidy for sedation Domingo Smith RN 12:39:18 Fentanyl I.V. 50 mcg Anuel Heidy for sedation Domingo Smith RN 12:40:01 Heparin Bolus I.V. 4000 Anuelcosme Agee for dose units Domingo Lane MD anticoagulation verified with dr lane Procedure Log Time Note 12:00:38 Andres Barillas RN sent for patient. Start room use. 12:11:07 ACC Patient presents with Unstable Angina CCS Anginal Class 2--Slight limitation of ordinary activity. 12:11:11 Diagnostic Cath status Urgent 12:15:22 Time tracking: Regular hours 12:15:26 Plan of Care:Hemodynamics will remain stable., Cardiac rhythm will remain stable., Comfort level will be maintained., Respiratory function will remain adequate., Patient/ family verbilizes understanding of procedure., Procedure tolerated without complication., Recovers from procedure without complications.. 12:15:32 Patient received from ED to CCL 2 Alert and oriented. Tansferred to table in Supine position. 12:15:34 Warm blankets applied, and amparo hugger turned on for patient comfort. 12:15:34 Correct patient and procedure confirmed by team. 12:15:35 Signed procedure consent form obtained from patient. 12:15:36 ECG and BP/O2 sat monitors applied to patient. 12:15:57 H&P Date Dictated: 10/08/2016 Emergent; H&P N/A. 12:15:58 Pre-procedure instructions explained to patient. 12:15:59 Pre-op teaching completed and patient verbalized understanding. 12:16:00 Family in waiting room. 12:16:03 Patient NPO since Midnight. 12:16:04 Is the patient allergic to Iodine/contrast media? No. 12:16:38 Is patient on blood thinner?Yes 12:16:41 ACC The patient was administered the following blood thiners within the last 24 hours: ACCPlavix 12:16:44 Patient diabetic? No. 12:16:46 Previous problem with sedation/anesthesia? No ? 12:16:47 Snore? No 12:16:48 Sleep apnea? No 12:16:49 Deviated septum? No 12:16:50 Opens mouth fully? Yes 12:16:51 Sticks out tongue? Yes 12:16:56 Airway obstruction? No ? 12:16:58 Dentures? No ? 12:17:06 Pre procedure: right dorsailis pedis pulse 1+ Palpable, but thready & weak; easily obliterated 12:17:08 Modified Rakesh's test Ulnar < 7 seconds 12:22:33 Vital chart was started 12:23:26 Oxygen 2 l/min NC was administered by Heidy Smith RN; Per physician; 12:23:33 Heparin Flush Bag (1000units/500ml NS) 2 bags added to field was administered by Anuel Lane MD; used for procedure; 12::40 Lidocaine 2% 20ml vial added to field was administered by Anuel Lane MD; used for procedure; 12::47 Radial Cocktail (Verapomil 2mg/Nitro 400mcg/Heparin 1500units) 1 syringe added to field was administered by Anuel Lane MD; used for procedure; 12::59 Plavix 75 mg P.O. was administered by Heidy Smith RN; for antiplatelet therapy; 12::51 Baseline sample Acquired. 12:30:00 Rhythm: sinus bradycardia 12:30:02 Full Disclosure recording started 12:30:08 Patient pain scale 0/10 ?. 12:30:24 IV patent on arrival in right hand with 0.9% NaCl at [facility]. 12:30:26 Lab results completed and on chart. 12::33 Right Radial & Right Groin area was prepped with chlora-prep and draped in sterile fashion 12::34 Alarms reviewed by R. N. 12::34 Sharps counted by scrub and verified by R.N. 12::36 --------ALL STOP TIME OUT------ 12:30:36 Final Timeout: patient, procedure, and site verified with staff and physician. All members of the team are in agreement. 12:30:38 Right Radial & Right Groin site verified by team. 12:30:41 Physical assessment completed. ASA score P 2 - A patient with mild systemic disease as per Anuel Lane MD. 12:30:45 Versed 1 mg I.V. was administered by Heidy Smith RN; for sedation; 12:30:49 Sedation plan: IV Moderate Sedation Versed, Fentanyl 12:30:54 Fentanyl 50 mcg I.V. was administered by Heidy Smith RN; for sedation; 12::47 Versed 1 mg I.V. was administered by Heidy Smith RN; for sedation; 12:33:00 Fentanyl 50 mcg I.V. was administered by Heidy Smith RN; for sedation; 12:34:13 Use device set Radial Dx 12:34:14 Tegaderm 4 x 4 opened to sterile field. 12:34:15 Acist Hand Control opened to sterile field. 12:34:15 Acist Manifold opened to sterile field. 12:34:17 Acist Syringe opened to sterile field. 12:34:17 Medline Cath Pack opened to sterile field. 12:34:17 Bag Decanter opened to sterile field. 12:34:18 Terumo 6Fr Slender Glidesheath opened to sterile field. 12:34:18 St Satnam 260cm J .035 wire opened to sterile field. 12:34:19 MBrace Wrist Support opened to sterile field. 12:34:21 Procedure started. 12:34:31 Local anesthetic to right radial artery with Lidocaine 2% by Anuel Lane MD.INITIAL ACCESS ONLY 12:35:02 A 6 Fr Short sheath was inserted into the Right Radial artery 12:35:08 Versed 1 mg I.V. was administered by Heidy Smith RN; for sedation; 12:35:12 Fentanyl 50 mcg I.V. was administered by Heidy Smith RN; for sedation; 12:35:40 A Terumo 5Fr Cumberland 110cm catheter was advanced over the wire and used for Procedure. 12:35:48 Radial Cocktail (Verapomil 2mg/Nitro 400mcg/Heparin 1500units) 1 syringe I.A. was administered by Anuel Lane MD; for vasodilation; 12:36:09 LV angiography performed. 12:36:10 LV gram done using BRAR 12:36:15 EF : 60 % 12:36:18 Injector settings: Ml/sec: 7, Volume: 15, 12:37:05 Versed 1 mg I.V. was administered by Heidy Smith RN; for sedation; 12:37:06 LCA angiography performed. 12:37:15 Fentanyl 50 mcg I.V. was administered by Heidy Smith RN; for sedation; 12:37:31 Mendiola Whisper J 300cm 0.014 guide wire opened to sterile field. 12:37:33 i.Sec BasixCompak Inflation Kit opened to sterile field. 12:39:00 Versed 1 mg I.V. was administered by Heidy Smith RN; for sedation; 12:39:07 RCA angiography performed. 12:39:10 Catheter exchanged over wire. 12:39:18 Fentanyl 50 mcg I.V. was administered by Heidy Smith RN; for sedation; 12:39:22 Cordis 6FR XBLAD 3.5 guide catheter opened to sterile field. 12:39:54 6 Fr XBLAD 3.5 guide catheter was inserted over the wire 12:39:59 ACC PCI Site: dLAD has 95% stenosis. 12:40:01 Heparin Bolus 4000 units I.V. was administered by Anuel Lane MD; for anticoagulation; dose verified with dr lane 12:40:01 ACC Pre-intervention TA Flow is 3. 12:40:29 Whisper wire advanced. 12:42:08 Wire advanced across lesion. 12:42:40 Inflation number: 1 A [employer] [place] 2.0 X 15 balloon was prepped and advanced across the Dist LAD, then inflated to 17 JANNETH for 0:10 (min:sec). 12:43:04 Multiple inflations made at 17 Atms. 12:46:13 Balloon removed over the wire. 12:46:13 Wire removed. 12:46:14 Guide catheter removed. 12:46:15 ACC Post-intervention TA Flow is 3. 12:46:30 Sheath removed intact; hemostasis achieved with Mechanical Compression to the Right Radial artery. 12:46:33 Procedure ended.(Physican Out) 12:46:52 Fluoroscopy time 04.50 minutes. 12:46:56 Fluoroscopy dose: 1715 mGy 12:46:56 Flurop Dose total: 1715 12:47:09 Contrast amount:Isovue 300 120ml. 12:47:11 Sharps counted by scrub and verified by R.N. 12:47:13 TR band inflated with 12cc of air. 12:47:14 Insertion/operative site no bleeding no hematoma. 12:47:17 Post Procedure Pulses reassessed and unchanged 12:47:45 Post-procedure physical assessment completed. ASA score P 2 - A patient with mild systemic disease as per Anuel Lane MD. 12:47:47 Post procedure rhythm: unchanged. 12:47:54 Estimated blood loss: 10 ml 12:47:56 Post procedure instruction explained to patient.Patient verbalizes understanding. 12:47:56 Patient needs reinforcement of post procedure teaching. 12:48:27 Procedure type changed to Cath procedure, Diagnostic procedure, LHC, LHC w/Coronaries, Right Heart, PCI procedure, PTCA Initial, Miscellaneous Procedures, Moderate Sedation up to 15 minutes 12:48:30 Procedure and supply charges have been captured, reviewed, submitted and are correct. 12:48:33 Procedure Complication : No complications 12:49:07 Terumo TR Band Standard opened to sterile field. 12:50:20 Vital chart was stopped 12:50:21 See physician's report for complete and final results. 12:50:26 Report given to Pre/Post Procedure Room. 12:50:36 Patient transfered to Pre/Post Procedure Room with Stretcher. 12:50:39 Procedure ended. 12:50:39 Full Disclosure recording stopped 12:50:46 End room use (Document Last) Intervention Summary Intervention Notes Time ActionType Lesion and Equipment Action# Pressure Duration Attributes Used 12:42:40 Inflate Dist LAD Pinon 1 17 00:10 balloon Sci Lancaster 2.0 X 15 balloon Device Usage Item Name Manufacture Quantity Catalog Number Hospital Part Current Mini mal Lot# / Charge Number Stock Stock Serial# Code Tegade 4 3M 1 1626W [id number] 139923 [id number] 5 x 4 Acist Hand Acist 1 62985 119587 900560 828806 5 Control Medical Systems Inc Acist Acist 1 11844 007271 536722 711079 5 Manifold Medical Systems Inc Acist Acist 1 90693 520465 731862 217241 20 Syringe Medical Systems Inc Medline Cardinal 1 [id number] 631902 07515 996329 5 Cath Pack Health Bag Microtek 1 2002S 585932 42580 705336 5 [employer] Inc. Terumo 6Fr Terumo 1 [id number] 122134 699498 427106 [address] Satnam 1 823100 735025 459954 029103 30 260cm J .035 wire MBrace Advanced 1 140-0250-00 074961 50214 892402 5 Wrist Vascular Support Dynamics Terumo 5Fr Terumo 1 80-8367 889270 297302 854523 5 Cumberland 110cm catheter Mendiola Mendiola 1 [id number] 801180 266948 364692 5 Whisper J Vascular 300cm 0.014 guide wire Merit Merit 1 [id number] 043725 550811 792921 15 [employer] Medical Inflation Kit Cordis 6FR Cardinal 1 [id number] 917995 450871 043930 10 XBLAD 3.5 Health guide catheter Pinon Sci Pinon 1 [id number] 766304 406276 305693 1 [id number] [employer] 2.0 X 15 balloon Terumo TR Terumo 1 [id number] 627166 156822 345150 40 Band Standard Signature Audit [place] Stage Time Signature Unsigned Intra-Procedure 10/08/2016 Lance Martin 12:51:50 PM RT(R) Signatures Monitor : Lance Martin RT Signature : Date : Time : [id number] [place] [address]
[2016-10-08 08:30] LABS: BASOPHILS 0.4 % (0-2); EOSINOPHILS 2.3 % (0-7); HEMATOCRIT 42.5 % (42.0-54.0); HEMOGLOBIN 14.6 g/dL (13.5-17.5); IMMATURE GRANULOCYTES 0.2 % (0-5); MCH 33.1 pg (26.0-34.0); MCHC 34.4 g/dL (31.0-37.0); MCV 96.4 fL (80.0-100.0); MONOCYTES 9.8 % (2-11); NEUTROPHILS 58.3 % (40-80); PLATELET COUNT 204 10x3/uL (130-400); RBC 4.41 10x6/uL (4.20-6.10); RDW 12.5 % (11.5-14.5); WBC 5.1 10x3/uL (4.8-10.8)
[2016-10-08 08:56] LABS: ALBUMIN 3.4 g/dL (3.4-5.0); ALKALINE PHOSPHATASE 48 U/L (46-116); ALT (SGPT) 34 U/L (10-68); BILIRUBIN - TOTAL 0.66 mg/dL (0.2-1.3); CALC OSMOLALITY 279 mosm/kg (275-300); CALCIUM 8.8 mg/dL (8.5-10.1); CARBON DIOXIDE 29.9 mmol/L (21.0-32.0); CHLORIDE - SERUM 106 mmol/L (98-107); CREATININE - SERUM 0.9 mg/dL (0.6-1.3); GLUCOSE 99 mg/dL (74-106); POTASSIUM - SERUM 4.3 mmol/L (3.5-5.1); PROTEIN - SERUM 6.2 g/dL (6.4-8.2); SODIUM 140 mmol/L (136-145); UREA NITROGEN 14 mg/dL (7-18); eGFR NON AFRICAN AMERICAN > 90 mL/min (90-120)
[2016-10-08 09:32] LABS: TROPONIN-I 0.023 ng/mL (0.000-0.060)
--- NOTE | 2016-10-09 12:56 | CN ---
PATIENT NAME:PETEY LAKHANI MEDICAL RECORD: [id number] : 53 LOCATION:D.CAT ADMIT DATE: ACCOUNT: [id number] CONSULTING PHYSICIAN: ABDI BETANCOURT MD REFERRING PHYSICIAN: MANASA RAYGOZA MD DATE OF CONSULTATION: 10/08/2016 ADMITTING DIAGNOSES: 1. Unstable angina. 2. Coronary artery disease. 3. Previous multivessel percutaneous transluminal coronary angioplasty stent. 4. Hypertension. 5. Hyperlipidemia. HISTORY OF PRESENT ILLNESS: Mr. Lakhani presents with fatigue, shortness of breath and left arm pain. Troponin is mildly elevated. These are the same symptoms he had in the past when he has had hemodynamically significant disease. He is status post multivessel percutaneous transluminal coronary angioplasty stent. His EKG is with no acute ST-T abnormalities. PHYSICAL EXAMINATION: GENERAL APPEARANCE: Well-nourished, well-developed, appears stated age. Level of distress, comfortable. PSYCHIATRIC: Mental status, alert, normal affect. Orientation, oriented to time, place and person. EYES: Lids and conjunctiva, noninjected. No discharge, no pallor. ENT: Lips, teeth, gums, normal dentition. Oropharynx, no cyanosis, no pallor. NECK: Carotid arteries, bilateral normal upstroke, no bruits, no thrills. JUGULAR VEINS: No jugular venous pressure or distention. CERVICAL LYMPH NODES: Nontender, nonenlarged. THYROID: Not enlarged. Nontender. No nodules. LUNGS: Respiratory effort, unlabored. CHEST: Normal curvature. No thoracic deformity. No chest wall tenderness. Percussion, resonant. Auscultation, clear. No wheezes, no rales, no rhonchi. CARDIOVASCULAR: Precordial exam, nondisplaced. No heaves or pericardial thrills. Rate and rhythm, regular. Heart sounds, normal S1, normal S2. No S3, no gallop, no rub. Systolic murmur, not heard. Diastolic murmur, not heard. EXTREMITIES: No cyanosis, no edema. Peripheral pulses, full and equal in all extremities, except as noted. No bruits appreciated. ABDOMEN: Soft, nondistended. Normal aorta. No bruit. Nontender. No masses. Liver, nontender, no hepatomegaly. Spleen, nontender, no splenomegaly. MUSCULOSKELETAL: No joint tenderness. No joint swelling. No erythema. NEUROLOGICAL: Normal gait, normal strength, normal tone. SKIN: Warm and dry. REVIEW OF SYSTEMS: The patient reports easy bruising but reports no swollen glands. The patient reports no fever, no night sweats, no significant weight gain, no significant weight loss. No significant exercise tolerance. The patient reports no dry eyes, no irritation, no vision change. Patient reports no difficulty hearing and no ear pain. Patient reports no frequent nose bleeds or nose and sinus problems. Patient reports on arm pain on exertion. No shortness of breath while lying down. No history of heart murmur. Patient reports no cough, no wheezing or coughing up blood. Patient reports no abdominal pain, no vomiting. Normal appetite. No diarrhea and not vomiting blood. No nausea and no constipation. Patient reports no incontinence. No CONSULT REPORT [id number] PETEY LAKHANI difficulty urinating. No hematuria. No increased frequency. Patient reports no muscle aches. No weakness, no arthralgias, no back pain. No swelling of the extremities. Patient reports no abnormal mole, no jaundice, no rashes. Reports no loss of consciousness. No weakness and no numbness. No seizures, dizziness, or headaches. The patient reports no depression, no sleep disturbance, feeling safe in a relationship and no alcohol abuse. Patient reports on fatigue. Reports no runny nose or sinus pressure. No itching, no hives, and no frequent sneezing. OVERALL IMPRESSION: Unstable angina with mildly elevated troponin, most likely has recurrent hemodynamically significant disease and/or restenosis. We will proceed with coronary angiography. Further care depends upon findings of the angiography. TRANSINT:[id number] Voice Confirmation ID: [id number] DOCUMENT ID: [id number] ABDI BETANCOURT MD at 1256 CC: [id number] DICTATION DATE: 10/08/16 1247 GED PREPARATION TEACHER: 10/08/16 1523 DEP CLI 10/08/[address] [address]
--- NOTE | 2016-10-10 07:56 | OP ---
PATIENT NAME: PETEY RANGEL MEDICAL RECORD: [id number] :53 LOCATION:D.CAT ADMISSION DATE: SURGEON: ABDI BETANCOURT MD DATE OF OPERATION: 10/08/2016 PROCEDURES: 1. PTCA LAD. 2. Left heart catheterization. 3. Selective coronary angiography. 4. Left ventriculogram. INDICATION: Unstable angina. PROCEDURE IN DETAIL: After informed consent was obtained and after a detailed explanation of the risks, benefits as well as alternative therapies, the patient elected to proceed with angiogram and angioplasty. The right radial area was prepped and draped in normal sterile fashion. Right radial artery was cannulated via modified Seldinger technique with placement of 6-English sheath. All catheters were exchanged through this sheath. FINDINGS: Left ventriculogram was performed in the standard 30-degree BRAR view reveals good cardiac wall motion throughout all segments. Overall ejection fraction of 50%. SELECTIVE CORONARY ANGIOGRAPHY: 1. Left main has no significant angiographic disease. 2. Left anterior descending has previously placed stents in the very distal aspect, almost to the apex. There is an area of ____ in-stent restenosis that is very discrete. 3. Left circumflex has previously placed stents. These are widely patent with no significant restenosis. No disease elsewise. 4. Right coronary has moderate irregularities, but no flow-limiting stenosis. PTCA OF THE LAD: The balloon used was a 2.0 x 15 mm Shelby taken to 17 atmospheres. Result was 0% residual stenosis. OVERALL IMPRESSION: Successful percutaneous transluminal coronary angioplasty for in-stent restenosis of the very distal left anterior descending going from 95% initial stenosis to 0% residual. TRANSINT:[id number] Voice Confirmation ID: [id number] DOCUMENT ID: [id number] ABDI BETANCOURT MD at 0756 CC: [id number] DICTATION DATE: 10/08/16 1249 GENETIC COUNSELOR: 10/08/16 1751 [facility] CLI 10/08/[address] [address]
== END 2016-10-08 17:25 | disposition home or self-care (01) ==
LOC: D.ER 07:59 → D.CATH 07:59 → EDSTATUS 11:30 → D.CATH 17:25
PROVIDERS: Emergency Medicine
DX: I25.110 Atherosclerotic heart disease of native coronary artery with unstable angina pectoris (principal); T82.855A Stenosis of coronary artery stent, initial encounter; I10 Essential (primary) hypertension; E78.5 Hyperlipidemia, unspecified; Z01.812 Encounter for preprocedural laboratory examination

== ENCOUNTER 2017-02-15 12:20 | Outpatient (CLI) | payer BC ==
[~2017-02-15] VITALS: Ht 180.3 cm; Wt 88.6 kg
--- NOTE | ~2017-02-15 | OP ---
PATIENT NAME: PETEY RANGEL MEDICAL RECORD: [id number] :53 LOCATION:D.CAT ADMISSION DATE: SURGEON: ABDI BETANCOURT MD DATE OF OPERATION: 02/15/2017 PROCEDURES: 1. Left heart catheterization. 2. Selective coronary angiography. 3. Left ventriculogram. INDICATION: Chest pain compatible with angina. PROCEDURE IN DETAIL: After informed consent was obtained and after detailed explanation of risks, benefits as well as alternative therapies, the patient elected to proceed with angiogram and heart catheterization. The right radial artery was prepped and draped in normal sterile fashion. The right radial artery was cannulated via modified Seldinger technique with placement of 5-Bengali sheath. All catheters exchanged through this sheath. FINDINGS: Left ventriculogram was performed in standard 30-degree BRAR view, reveals good cardiac wall motion throughout all segments. Overall ejection fraction estimated at 60%. SELECTIVE CORONARY ANGIOGRAPHY: 1. Left main showed no significant angiographic disease. 2. Left anterior descending has previously placed stents. These are widely patent with no significant restenosis. No disease elsewise throughout the LAD or its branches. 3. Left circumflex is widely patent with no significant stenosis. 4. Right coronary artery is widely patent with no significant stenosis. OVERALL IMPRESSION: No significant restenosis of any of the previously placed stents. No disease elsewise. Preserved left ventricular function. Continue medical management of the coronary artery disease and cardiac risk factors. TRANSINT:[id number] Voice Confirmation ID: [id number] DOCUMENT ID: [id number] ABDI BETANCOURT MD CC: [id number] DICTATION DATE: 02/15/17 1437 BRIMMER BLOCKER: 02/15/17 1543 [facility] [address] [place] [address]
--- NOTE | ~2017-02-15 | HEMODYNAMI ---
PATIENT:PETEY RANGEL MEDICAL RECORD: [id number] : 53 LOCATION:[facility] ADMISSION DATE: 02/15/17 Generatedon:02/15/201714:36 Patient name: PETEY RANGEL Patient #: [id number] : 1955 Date of study: 02/15/2017 Page: Of Hemodynamic Procedure Report Patient Data Patient Demographics Procedure consent was obtained First Name: PETEY Gender: Male Last Name: CLAIRE : 1955 [facility] Initial: VAISHALI Age: 61 year(s) Patient #: [id number] Race: SSN: [id number] Additional ID: [id number] Contact details Address: [place] [address] State: [place] City: [place] Zip code: [address] Past Medical History Allergies Allergen Reaction Date Comments Reported Other allergy 06/22/2015 Codeine Other allergy 06/22/2016 codeine, hydrocodone Other allergy 02/15/2017 codeine Admission Admission Data Admission Date: 02/15/2017 Admission Time: 12:20 Lab Results Lab Result Date: 02/15/2017 Lab Result Time: 0:00 Biochemistry Name Units Result Min Max Creatinine mg/dl 0.8 --(-*--)-- 0.6 1.3 CBC Name Units Result Min Max Hemoglobin g/dl 15.7 --(--*-)-- 13.5 17.5 Procedure Procedure Types Cath Procedure Diagnostic Procedure LHC LHC w/Coronaries Miscellaneous Procedures Moderate Sedation up to 15 minutes Procedure Description Procedure Date Procedure Date: 02/15/2017 Procedure Start Time: 14:24 Procedure End Time: 14:35 Procedure Staff Name Function Anuel Lane MD Performing Physician Bhumi Jerome RT Scrub Mony Long RN Nurse Michaela Lacey RT Monitor Procedure Data Cath Procedure Fluoroscopy Diagnostic fluoroscopy Total fluoroscopy Time: 0 time: 0 min min Diagnostic fluoroscopy Total fluoroscopy dose: dose: 1178 mGy 1178 mGy Contrast Material Contrast Material Type Amount (ml) Isovue 300 60 Entry Location Entry Primary Successful Side Size Upsize Upsize Entry Closure Daley ccessful Closure Location (Fr) 1 (Fr) 2 (Fr) Remarks Device Remarks Radial Right 6 Fr Mechanical artery Short Compression Estimated blood loss: 5 ml Diagnostic catheters Device Type Used For End Catheter Placement Diagnostic Terumo 5Fr LV Angiography [place]ster 110cm catheter Diagnostic Terumo 5Fr Left Coronary [place] 110cm catheter Angiography Diagnostic Terumo 5Fr Right Coronary [place] 110cm catheter Angiography Procedure Complications No complications Procedure Medications Medication Administration Route Dosage Oxygen NC 2 l/min Lidocaine 2% added to field 20 Heparin Flush Bag added to field 2 bags (1000units/500ml NS) 0.9% NaCl I.V. 100 ml/hr Versed I.V. 2 mg Fentanyl I.V. 100 mcg Versed I.V. 2 mg Fentanyl I.V. 100 mcg Radial Cocktail I.A. 1 syringe (Verapomil 2mg/Nitro 400mcg/Heparin 1500units) Versed I.V. 2 mg Fentanyl I.V. 100 mcg Hemodynamics Rest HGB: 15.7 (g/dl) Heart Rate: 61 (bpm) Snapshots Pre Cath Intra NCS Post Cath Vital Signs Time Heart Resp SPO2 NIBP (mmHg) Rhythm Pain Sedation Rate (ipm) (%) Status Level (bpm) 14:10:25 61 52 100 125/69(107) NSR 0 (11) 10(A) , No pain 14:14:43 62 45 99 106/65(86) NSR 0 (11) 10(A) , No pain 14:18:53 61 21 99 110/64(83) NSR 0 (11) 10(A) , No pain 14:23:05 60 19 98 99/61(77) NSR 0 (11) 10(A) , No pain 14:27:15 63 23 96 98/51(78) NSR 0 (11) 9(A) , No pain 14:31:21 81 19 95 103/65(85) NSR 0 (11) 9(A) , No pain 14:35:14 77 21 97 106/73(85) NSR 0 (11) 10(A) , No pain Medications Time Medication Route Dose Verified Delivered Reason Notes Effectiveness by by 14:07:40 Oxygen NC 2 l/min Anuelcosme Sykes used for Domingo Long RN procedure 14:08:06 Lidocaine 2% added 20ml Anuel Agee for local to vial Domingo Lane MD anesthetic field 14:08:14 Heparin Flush added 2 bags Anuel Agee used for Bag to Domingo Lane MD procedure (1000units/500ml field NS) 14:08:22 0.9% NaCl I.V. 100 Anuel Sykes Per ml/hr Domingo Long RN physician 14:13:46 Versed I.V. 2 mg Anuel Sykes for sedation Domingo Long RN 14:13:51 Fentanyl I.V. 100 mcg Anuel Sykes for sedation Domingo Long RN 14:16:48 Versed I.V. 2 mg Anuel Sykes for sedation Domingo Long RN 14:16:51 Fentanyl I.V. 100 mcg Anuel Sykes for sedation Domingo Long RN 14:25:23 Radial Cocktail I.A. 1 Anuel Agee for (Verapomil syringe Domingo Lane MD vasodilation 2mg/Nitro 400mcg/Heparin 1500units) 14:25:27 Versed I.V. 2 mg Anuel Agee for sedation Domingo Lane MD 14:25:33 Fentanyl I.V. 100 mcg Anuel Agee for sedation Domingo Lane MD Procedure Log Time Note 13:50:31 Mony Long RN sent for patient. Start room use. 13:50:32 Time tracking: Regular hours 13:50:36 Plan of Care:Hemodynamics will remain stable., Cardiac rhythm will remain stable., Comfort level will be maintained., Respiratory function will remain adequate., Patient/ family verbilizes understanding of procedure., Procedure tolerated without complication., Recovers from procedure without complications.. 14:00:24 Patient received from Pre/Post Procedure Room to CCL 2 Alert and oriented. Tansferred to table in Supine position. 14:00:26 Warm blankets applied, and amparo hugger turned on for patient comfort. 14:00:26 Correct patient and procedure confirmed by team. 14:00:28 Signed procedure consent form obtained from patient. 14:00:45 H&P Date Dictated: 02/12/2017 Within 30 days and on chart., H&P Addendum completed by physician on day of procedure. (MUST COMPLETE FOR ALL OUTPATIENTS). 14:00:47 Pre-procedure instructions explained to patient. 14:00:49 Family in waiting room. 14:00:53 Patient NPO since Midnight. 14:01:10 Patient allergic to Other allergycodeine 14:01:13 Is the patient allergic to Iodine/contrast media? No. 14:06:55 Is patient on blood thinner?Yes 14:06:58 ACC The patient was administered the following blood thiners within the last 24 hours: ACCAspirin, ACCPlavix 14:07:00 Patient diabetic? No. 14:07:05 Snore? No 14:07:12 Dentures? No ? 14:07:21 IV patent on arrival in left hand with 0.9% NaCl at [facility]. 14:07:28 Lab results completed and on chart. 14:07:32 Right Radial & Right Groin area was prepped with chlora-prep and draped in sterile fashion 14:07:33 Alarms reviewed by R. N. 14:07:34 Sharps counted by scrub and verified by R.N. 14:07:37 Physician paged 14:07:40 Oxygen 2 l/min NC was administered by Mony Long RN; used for procedure; 14:08:06 Lidocaine 2% 20ml vial added to field was administered by Anuel Lane MD; for local anesthetic; 14:08:14 Heparin Flush Bag (1000units/500ml NS) 2 bags added to field was administered by Anuel Lane MD; used for procedure; 14:08:22 0.9% NaCl 100 ml/hr I.V. was administered by Mony Long RN; Per physician; 14::15 ECG and BP/O2 sat monitors applied to patient. 14:09:15 Vital chart was started 14:09:19 Rhythm: sinus rhythm 14::23 Full Disclosure recording started 14:09:24 Pre-op teaching completed and patient verbalized understanding. 14:09:32 Previous problem with sedation/anesthesia? No ? 14:09:33 Sleep apnea? No 14:09:34 Deviated septum? No 14:09:35 Opens mouth fully? Yes 14:09:36 Sticks out tongue? Yes 14:09:37 Airway obstruction? No ? 14:09:42 Pre procedure: right dorsailis pedis pulse 1+ Palpable, but thready & weak; easily obliterated 14:09:44 Modified Rakesh's test Ulnar < 7 seconds 14:09:47 Patient pain scale 0/10 ?. 14:09:56 Use device set Radial Dx 14:09:57 Acist Syringe opened to sterile field. 14:09:58 Medline Cath Pack opened to sterile field. 14:09:58 Bag Decanter opened to sterile field. 14:09:58 Terumo 6Fr Slender Glidesheath opened to sterile field. 14:09:58 St Satnam 260cm J .035 wire opened to sterile field. 14:09:59 Acist Hand Control opened to sterile field. 14:09:59 Acist Manifold opened to sterile field. 14:10:00 Tegaderm 4 x 4 opened to sterile field. 14:10:01 MBrace Wrist Support opened to sterile field. 14:11:20 Final Timeout: patient, procedure, and site verified with staff and physician. All members of the team are in agreement. 14:11:23 Right Radial & Right Groin site verified by team. 14:11:25 Physical assessment completed. ASA score P 2 - A patient with mild systemic disease as per Anuel Lane MD. 14:11:27 Sedation plan: IV Moderate Sedation Versed, Fentanyl 14:13:46 Versed 2 mg I.V. was administered by Mony Long RN; for sedation; 14:13:51 Fentanyl 100 mcg I.V. was administered by Mony Long RN; for sedation; 14:14:54 Lab Result : Creatinine 0.8 mg/dl 14:14:54 Lab Result : Hemoglobin 15.7 g/dl 14:15:23 Baseline sample Acquired. 14:16:48 Versed 2 mg I.V. was administered by Mony Long RN; for sedation; 14:16:51 Fentanyl 100 mcg I.V. was administered by Mony Long RN; for sedation; 14:22:00 Zero performed for pressure channel P1 14:24:03 Procedure started. 14:24:24 Local anesthetic to right radial artery with Lidocaine 2% by Anuel Lane MD.INITIAL ACCESS ONLY 14:24:47 A 6 Fr Short sheath was inserted into the Right Radial artery 14:25:23 Radial Cocktail (Verapomil 2mg/Nitro 400mcg/Heparin 1500units) 1 syringe I.A. was administered by Anuel Lane MD; for vasodilation; 14::23 A Diagnostic Terumo 5Fr [place] 110cm catheter was advanced over the wire and used for LV Angiography. 14:: Versed 2 mg I.V. was administered by Anuel Lane MD; for sedation; 14::33 Fentanyl 100 mcg I.V. was administered by Anuel Lane MD; for sedation; 14:: LV gram done using BRAR 14::16 Injector settings: Ml/sec: 5, Volume: 15, 14::28 EF : 60 % 14::45 A Diagnostic Terumo 5Fr [place] 110cm catheter was advanced over the wire and used for Left Coronary Angiography. 14::27 A Diagnostic Terumo 5Fr [place] 110cm catheter was advanced over the wire and used for Right Coronary Angiography. 14:27:46 Catheter removed. 14:28:27 Cordis 6FR XBLAD 3.5 guide catheter opened to sterile field. 14:28:34 6 Fr XBLAD 3.5 guide catheter was inserted over the wire 14:28:39 LCA angiography performed. 14:29:58 Catheter removed. 14:30:35 Sheath removed intact; hemostasis achieved with Mechanical Compression to the Right Radial artery. 14:30:37 Procedure ended.(Physican Out) 14:30:49 Fluoroscopy time 00.00 minutes. 14:30:53 Flurop Dose total: 1178 14:30:53 Fluoroscopy dose: 1178 mGy 14:30:55 Contrast amount:Isovue 300 60ml. 14:30:57 Sharps counted by scrub and verified by R.N. 14:30:59 TR band inflated with 12cc of air. 14:31:01 Insertion/operative site no bleeding no hematoma. 14:31:08 Post right radial artery:stable, clean and dry 14:31:09 Post Procedure Pulses reassessed and unchanged 14::16 Post-procedure physical assessment completed. ASA score P 2 - A patient with mild systemic disease as per Anuel Lane MD. 14:31:20 Post procedure rhythm: unchanged. 14:31:24 Estimated blood loss: 5 ml 14:31:25 Post procedure instruction explained to patient.Patient verbalizes understanding. 14:31:26 Patient needs reinforcement of post procedure teaching. 14:31:29 Procedure and supply charges have been captured, reviewed, submitted and are correct. 14:31:34 Procedure Complication : No complications 14:31:36 See physician's report for complete and final results. 14:31:51 Terumo TR Band Standard opened to sterile field. 14:32:21 Procedure type changed to Cath procedure, Diagnostic procedure, LHC, LHC w/Coronaries, Miscellaneous Procedures, Moderate Sedation up to 15 minutes 14:35:40 Vital chart was stopped 14:35:42 Report given to Pre/Post Procedure Room. 14:35:44 Patient transfered to Pre/Post Procedure Room with Stretcher. 14:35:57 Procedure ended. 14:35:57 Full Disclosure recording stopped 14:36:00 End room use (Document Last) Device Usage Item Name Manufacture Quantity Catalog Hospital Part Current Minimal Lot# / Number Charge Number Stock Stock Serial# Code Acist Acist 1 30200 581952 076180 [id number] 20 Syringe [employer] Medline Cardinal 1 [id number] 755183 95085 178488 5 Cath Pack Health Bag Microtek 1 2001S 019941 88137 178687 5 Decanter [employer]. Terumo 6Fr Terumo 1 [id number] 298937 856771 031549 [address] St Satnam 1 388673 241975 489233 820313 30 260cm J .035 wire Acist Hand Acist 1 83232 664410 886615 674731 5 Control [employer] Inc Acist Acist 1 28713 052249 644005 796148 5 Manifold [employer] Inc Tegaderm 4 3M 1 1626W 330468 926469 118282 5 x 4 MBrace Advanced 1 140-0250-00 511839 39814 973988 5 Wrist Vascular Support [employer] Diagnostic Terumo 1 65-1316 031884 007588 227161 5 Terumo 5Fr [place] 110cm catheter Cordis 6FR Cardinal 1 [id number] 932482 452369 693652 10 XBLAD 3.5 Health guide catheter Terumo TR Terumo 1 [id number] 579364 811451 842536 40 Band Standard Signature Audit [place] Stage Time Signature Unsigned Intra-Procedure 02/15/2017 Michaela 2:36:11 PM Counts RT(R) Signatures Monitor : Michaela Signature : Counts RT Date : Time : [address] [place] [address]
[2017-02-15 12:38] VITALS: BP 122/68; Ht 180.3 cm; Wt 88.6 kg
[2017-02-15 12:50] LABS: BASOPHILS 0.3 % (0-2); EOSINOPHILS 1.3 % (0-7); HEMATOCRIT 44.5 % (42.0-54.0); HEMOGLOBIN 15.7 g/dL (13.5-17.5); IMMATURE GRANULOCYTES 0.2 % (0-5); LYMPHOCYTES 30.7 % (15-50); MCH 33.5 pg (26.0-34.0); MCHC 35.3 g/dL (31.0-37.0); MCV 94.9 fL (80.0-100.0); MEAN PLATELET VOLUME 9.8 fL (7.4-10.4); MONOCYTES 8.2 % (2-11); NEUTROPHILS 59.3 % (40-80); RBC 4.69 10x6/uL (4.20-6.10); RDW 12.4 % (11.5-14.5); WBC 6.2 10x3/uL (4.8-10.8)
[2017-02-15 12:56] LABS: PLATELET COUNT 261 10x3/uL (130-400)
[2017-02-15 12:59] LABS: CALC OSMOLALITY 275 mosm/kg (275-300); CALCIUM 9.3 mg/dL (8.5-10.1); CARBON DIOXIDE 27.5 mmol/L (21.0-32.0); CHLORIDE - SERUM 103 mmol/L (98-107); CREATININE - SERUM 0.8 mg/dL (0.6-1.3); GLUCOSE 88 mg/dL (74-106); POTASSIUM - SERUM 4.1 mmol/L (3.5-5.1); SODIUM 138 mmol/L (136-145); UREA NITROGEN 14 mg/dL (7-18); eGFR NON AFRICAN AMERICAN > 90 mL/min (90-120)
--- NOTE | 2017-02-15 14:45 | NUR ---
1445 RECIEVED TO ROOM WITH TR BAND TO R/WRIST CDI NO BLEEDING NO HEMATOMA NOTED. REPORTS OF A CLEAN CATH WITH NO INTERVENTION DONE. VSS CHEST PAIN DENIED
--- NOTE | 2017-02-15 14:57 | NUR ---
REPOSITIONED TO SITTING WITH HOB UP 30 DEGREES. TR BAND TO R/WRIST CDI NO BLEEDING NO HEMATOMA NOTED. VSS WITH CHEST PAIN DENIED. SANDWICH AND WATER TO BEDSIDE
--- NOTE | 2017-02-15 15:04 | NUR ---
DR BETANCOURT AT BEDSIDE TALKING TO PATIENT AND FAMILY. TR BAND REMAINS TO R/WRIST CDI NO BLEEDING NO HEMATOMA NOTED
--- NOTE | 2017-02-15 15:05 | NUR ---
PIV REMOVED WITH DRESSING APPLIED. CHEST PAIN DENIED WITH VSS. PATIENT UP TO GET DRESSED FOR DISCHARGE HOME
--- NOTE | 2017-02-15 16:03 | NUR ---
2CC AIR REMOVED FROM TR BAND, STARTED TO BLEED...3CC AIR RETURNED TO BAND.
--- NOTE | 2017-02-15 16:28 | NUR ---
PIV REMOVED FROM LEFT WRIST. 1CC AIR REMOVED FROM R WRIST TR BAND. UP TO BEDSIDE TO DRESS WITH ASSIST FROM .
--- NOTE | 2017-02-15 17:03 | NUR ---
CONTINUED TO WEAN TR BAND IN SMALL INCREMENTS. ABLE TO WEAN OFF BUT PUNCTURE SITE CONTINUES TO SLOWLY OOZE. TEGADERM AND COTTON BALL APPLIED TO R WRIST. CALLED AND SPOKE TO SUPRIYA MONTANEZ ABOUT WRIST. PER SILVESTRE BUSH TO REPLACE TR BAND ON TOP OF TEGADERM AND SEND HOME. TR BAND REPLACED AT 5CC AIR TO RIGHT WRIST ON TOP OF TEGADERM AND COTTON BALL. I DEMOSTRATED REMOVAL TO AND PATIENT AND BOTH VERBALIZED UNDERSTANDING. INSTRUCTED TO WEAN OFF AFTER 3 HOURS. REAPPLIED HAND BRACE. D/C INSTRUCTIONS DISCUSSED WITH PATIENT AND AT BEDSIDE. WHEELED OUT VIA WHEELCHAIR.
== END 2017-02-15 17:08 | disposition home or self-care (01) ==
LOC: D.CATH 12:20
PROVIDERS: Internal Medicine Interventional Cardiology
DX: I25.119 Atherosclerotic heart disease of native coronary artery with unspecified angina pectoris (principal); I10 Essential (primary) hypertension; E78.5 Hyperlipidemia, unspecified; Z01.812 Encounter for preprocedural laboratory examination

== ENCOUNTER → 2017-02-28 16:36 | Outpatient (CLI) | payer BC ==
[2017-02-15 12:38] VITALS: BMI 27.2
== END | disposition home or self-care (01) ==
LOC: D.RAD 16:36
DX: K59.00 Constipation, unspecified (principal)

== ENCOUNTER 2017-09-04 10:51 | Outpatient (CLI) | payer BC ==
[~2017-09-04] VITALS: Ht 177.8 cm; Wt 90.9 kg
--- NOTE | ~2017-09-04 | HEMODYNAMI ---
PATIENT:PETEY RANGEL MEDICAL RECORD: [id number] : 53 LOCATION:D.CAT ADMISSION DATE: 09/04/17 Generatedon:09/04/201713:17 Patient name: PETEY RANGEL Patient #: [id number] : 1955 Date of study: 09/04/2017 Page: Of Hemodynamic Procedure Report Patient Data Patient Demographics Procedure consent was obtained First Name: PETEY Gender: Male Last Name: CLAIRE : 1955 [facility] Initial: VAISHALI Age: 62 year(s) Patient #: [id number] Race: SSN: [id number] Additional ID: [id number] Contact details Address: [address] [address] State: [place] City: [place] Zip code: [address] Past Medical History Allergies Allergen Reaction Date Comments Reported Other allergy 06/22/2015 Codeine Other allergy 06/22/2016 codeine, hydrocodone Other allergy 02/15/2017 codeine Other allergy 09/04/2017 CODEINE, HYDROCODONE Admission Admission Data Admission Date: 09/04/2017 Admission Time: 10:51 Lab Results Lab Result Date: 09/04/2017 Lab Result Time: 0:00 Biochemistry Name Units Result Min Max BUN mg/dl 14 --(--*-)-- 7 18 Creatinine mg/dl 0.8 --(-*--)-- 0.6 1.3 CBC Name Units Result Min Max Hemoglobin g/dl 15.3 --(-*--)-- 13.5 17.5 Procedure Procedure Types Cath Procedure Diagnostic Procedure LHC [facility] w/Coronaries PCI Procedure PTCA PTCA Initial Peripheral Cath Diagnostic Procedure Cath Peripheral Four Vessel Arteriogram Procedure Description Procedure Date Procedure Date: 09/04/2017 Procedure Start Time: 13:00 Procedure End Time: 13:17 Procedure Staff Name Function Anuel Lane MD Performing Physician Karla Jorgensen RT Monitor Michaela Lacey RT Uriel Godoy RN Nurse Procedure Data Cath Procedure Fluoroscopy Diagnostic fluoroscopy Total fluoroscopy Time: 4.2 time: 4.2 min min Diagnostic fluoroscopy Total fluoroscopy dose: 688 dose: 688 mGy mGy Contrast Material Contrast Material Type Amount (ml) Isovue 300 96 Entry Location Entry Primary Successful Side Size Upsize Upsize Entry Closure Succes sful Closure Location (Fr) 1 (Fr) 2 (Fr) Remarks Device Remarks Femoral Right 5 Fr 6 Fr Exoseal artery Short Estimated blood loss: 10 ml Diagnostic catheters Device Type Used For End Catheter Placement MULTIPACK Pigtail 5 Fr Procedure catheter MULTIPACK JL 4.0 5Fr Procedure catheter MULTIPACK 3DRC 5Fr Procedure catheter Procedure Complications No complications Procedure Medications Medication Administration Route Dosage 0.9% NaCl I.V. 100 ml/hr Oxygen etCO2 Nasal cannula 2 l/min Heparin Flush Bag added to field 2 bags (1000units/500ml NS) Lidocaine 2% added to field 20 Versed I.V. 2 mg Versed I.V. 2 mg Fentanyl I.V. 100 mcg Versed I.V. 1 mg Heparin Bolus I.V. 4000 units Integrilin (Bolus I.V. 8.5 ml 2mg/ml) Integrilin (Bolus wasted 1.5 ml 2mg/ml) Plavix P.O. 600 mg Hemodynamics Rest HGB: 15.3 (g/dl) Heart Rate: 64 (bpm) Snapshots Pre Cath Intra NCS Post Cath Vital Signs Time Heart Resp SPO2 etCO2 NIBP (mmHg) Rhythm Pain Sedation Rate (ipm) (%) (mmHg) Status Level (bpm) 12:45:38 60 17 98 0 135/67(102) NSR 0 (11) 10(A) , No pain 12:50:18 65 15 100 0 118/70(97) NSR 0 (11) 10(A) , No pain 12:54:55 56 19 100 27.8 121/66(90) NSR 0 (11) 10(A) , No pain 12:59:31 62 18 99 36.9 116/68(91) NSR 0 (11) 10(A) , No pain 13:04:08 64 27 99 38.4 118/62(93) NSR 0 (11) 10(A) , No pain 13:08:44 66 18 98 1.5 112/61(90) NSR 0 (11) 10(A) , No pain 13:13:19 68 17 99 35.4 120/63(93) NSR 0 (11) 10(A) , No pain Medications Time Medication Route Dose Verified Delivered Reason Notes Effectiveness by by 12:50:08 0.9% NaCl I.V. 100 Kevin Kevin Per physician ml/hr Walt Godoy RN RN 12:50:19 Oxygen etCO2 2 Kevin Kevin Per physician Nasal l/min Walt Godoy cannula RN RN 12:50:29 Heparin Flush added 2 Kevin Kevin used for Bag to bags Walt Godoy procedure (1000units/500ml field RN RN NS) 12:50:41 Lidocaine 2% added 20ml Kevin Kevin for local to vial Walt Godoy anesthetic RN RN 13:00:24 Versed I.V. 2 mg Kevin Kevin for sedation Walt Godoy RN RN 13:00:53 Versed I.V. 2 mg Kevin Kevin for sedation Walt Godoy RN RN 13:01:00 Fentanyl I.V. 100 Kevin Kevin for sedation mcg Walt Godoy RN RN 13:02:22 Versed I.V. 1 mg Kevin Kevin for sedation Walt Goody RN RN 13:06:30 Heparin Bolus I.V. 4000 Kevin Kevin for units Walt Godoy anticoagulation RN RN 13:06:49 Integrilin I.V. 8.5 Kevin Kevin for (Bolus 2mg/ml) ml Walt Godoy antiplatelet RN RN therapy 13:07:02 Integrilin wasted 1.5 Kevin Kevin to sharp's (Bolus 2mg/ml) ml Walt Godoy RN RN 13:11:28 Plavix P.O. 600 Kevin Kevin for mg Walt Godoy antiplatelet RN RN therapy Procedure Log Time Note 12:30:35 Time tracking: Regular hours 12:30:39 Plan of Care:Hemodynamics will remain stable., Cardiac rhythm will remain stable., Comfort level will be maintained., Respiratory function will remain adequate., Patient/ family verbilizes understanding of procedure., Procedure tolerated without complication., Recovers from procedure without complications.. 12:30:41 Signed procedure consent form obtained from patient. 12:32:32 Lab Result : BUN 14 mg/dl 12:32:32 Lab Result : Hemoglobin 15.3 g/dl 12:32:32 Lab Result : Creatinine 0.8 mg/dl 12:32:58 Patient allergic to Other allergyCODEINE, HYDROCODONE 12:34:33 Karla Jorgensen RT(R) sent for patient. Start room use. 12:40:29 Patient received from Pre/Post Procedure Room to CCL 1 Alert and oriented. Tansferred to table in Supine position. 12:40:30 Warm blankets applied, and amparo hugger turned on for patient comfort. 12:40:30 Correct patient and procedure confirmed by team. 12:40:31 ECG and BP/O2 sat monitors applied to patient. 12:40:32 Full Disclosure recording started 12:44:45 Vital chart was started 12:50:08 0.9% NaCl 100 ml/hr I.V. was administered by Kevin Godoy RN; Per physician; 12:50:19 Oxygen 2 l/min etCO2 Nasal cannula was administered by Kevin Godoy RN; Per physician; 12:50:19 Baseline sample Acquired. 12:50:25 Rhythm: sinus rhythm 12:50:29 Heparin Flush Bag (1000units/500ml NS) 2 bags added to field was administered by Kevin Godoy RN; used for procedure; 12:50:41 Lidocaine 2% 20ml vial added to field was administered by Kevin Godoy RN; for local anesthetic; 12:50:56 Pre-procedure instructions explained to patient. 12:50:57 Pre-op teaching completed and patient verbalized understanding. 12:50:59 Family in patients room. 12:51:03 Patient NPO since Breakfast. 12:51:04 Is the patient allergic to Iodine/contrast media? No. 12:51:06 Is patient on blood thinner?No 12:51:09 Patient diabetic? No. 12:51:11 Previous problem with sedation/anesthesia? No ? 12:51:12 Snore? No 12:51:16 Sleep apnea? No 12:51:17 Deviated septum? No 12:51:18 Opens mouth fully? Yes 12:51:19 Sticks out tongue? Yes 12:51:20 Airway obstruction? No ? 12:51:23 Dentures? No ? 12:51:26 Pre procedure: right dorsailis pedis pulse 2+ Normal; easily identifiable; not easily obliterated 12:51:28 Patient pain scale 0/10 ?. 12:51:38 IV patent on arrival in left forearm with 0.9% NaCl at [facility]. 12:51:42 Lab results completed and on chart. 12:51:45 Right groin area was prepped with chlora-prep and draped in sterile fashion 12:51:46 Alarms reviewed by R. N. 12:51:46 Sharps counted by scrub and verified by R.N. 12:52:16 Use device set Femoral Dx 12:52:17 ACIST Syringe (53100) opened to sterile field. 12:52:18 Bag Decanter (2002S) opened to sterile field. 12:52:19 ACIST Hand Control (52673) opened to sterile field. 12:52:19 ACIST Manifold (97882) opened to sterile field. 12:52:20 Tegaderm 4 x 4 (1626W) opened to sterile field. 12:52:22 Medline Cath Pack ([id number]) opened to sterile field. 12:52:22 SHEATH 5FR Sweet Briar (VTF019) opened to sterile field. 12:52:23 DIAGNOSTIC WIRE .035 260cm J wire (596956) opened to sterile field. 12:52:24 DIAGNOSTIC Multipack 5Fr catheter set (XC6375) opened to sterile field. 12:52:25 PERCUTANEOUS ENTRY 19GA needle opened to sterile field. 12:55:36 Zero performed for pressure channel P1 13:00:16 --------ALL STOP TIME OUT------ 13:00:17 Final Timeout: patient, procedure, and site verified with staff and physician. All members of the team are in agreement. 13:00:19 Right groin site verified by team. 13:00:22 Physical assessment completed. ASA score P 2 - A patient with mild systemic disease as per Anuel Lane MD. 13:00:24 Versed 2 mg I.V. was administered by Kevin Godoy RN; for sedation; 13:00:26 Sedation plan: IV Moderate Sedation Medication:Versed, Fentanyl 13:00:32 Procedure started. 13:00:35 Local anesthetic to right femoral artery with Lidocaine 2% by Anuel Lane MD.INITIAL ACCESS ONLY 13:00:53 Versed 2 mg I.V. was administered by Kevin Lorigan RN; for sedation; 13:01:00 Fentanyl 100 mcg I.V. was administered by Kevin Godoy RN; for sedation; 13:01:12 A 5 Fr sheath was inserted into the Right Femoral artery 13:01:19 A MULTIPACK Pigtail 5 Fr catheter was advanced over the wire and used for Procedure. 13:01:21 LV gram done using BRAR 13:01:24 Injector settings: Ml/sec: 10, Volume: 20, 13:01:40 EF : 50 % 13:01:43 Catheter removed. 13:01:59 A MULTIPACK JL 4.0 5Fr catheter was advanced over the wire and used for Procedure. 13:02:22 Versed 1 mg I.V. was administered by Kevin Godoy RN; for sedation; 13::29 LCA angiography performed. 13:02:39 Merit INFLATION SYRINGE opened to sterile field. 13:02:46 SHEATH 6FR Sweet Briar (TEZ738) opened to sterile field. 13:02:53 Catheter removed. 13:02:58 A MULTIPACK 3DRC 5Fr catheter was advanced over the wire and used for Procedure. 13:03:39 RCA angiography performed. 13:04:12 Bilateral carotid angiography performed. 13:05:12 Catheter removed. 13:05:22 CHOICE PT Extra Support 182cm wire ([id number]) opened to sterile field. 13:05:32 Sheath upsized to a 6 Fr Short. 13:06:01 GUIDE 6FR XBLAD 3.5 catheter ([id number]) opened to sterile field. 13:06:27 6 Fr XBLAD 3.5 guide catheter was inserted over the wire 13:06:30 Heparin Bolus 4000 units I.V. was administered by Kevin Godoy RN; for anticoagulation; 13:06:49 Integrilin (Bolus 2mg/ml) 8.5 ml I.V. was administered by Kevin Godoy RN; for antiplatelet therapy; 13:07:02 Integrilin (Bolus 2mg/ml) 1.5 ml wasted was administered by Kevin Godoy RN; to sharp's; 13:07:12 CHOICE ES 182 wire advanced. 13:07:31 Wire advanced across lesion. 13:08:56 Inflate balloon Inflation number: 1 A EUPHORA 2.0 x 30 Balloon ([id number]) was prepped and advanced across the Dist LAD, then inflated to 15 JANNETH for 0:10 (min:sec). 13:09:08 Inflation number: 2 The EUPHORA 2.0 x 30 Balloon ([id number]) was reinflated across the Dist LAD, to 17 JANNETH for 0:10 (min:sec). 13:09:33 Inflation number: 3 The EUPHORA 2.0 x 30 Balloon ([id number]) was reinflated across the Dist LAD, to 19 JANNETH for 0:10 (min:sec). 13:09:44 Inflation number: 4 The EUPHORA 2.0 x 30 Balloon ([id number]) was reinflated across the Dist LAD, to 15 JANNETH for 0:10 (min:sec). 13:10:04 Balloon removed over the wire. 13:10:07 Wire removed. 13:10:07 Guide catheter removed. 13:10:27 EXOSEAL 6Fr (EX600) opened to sterile field. 13:10:37 Sheath removed intact; hemostasis achieved with Exoseal to the Right Femoral artery. 13:10:39 Procedure ended.(Physican Out) 13:10:55 Fluoroscopy time 04.20 minutes. 13:11:00 Fluoroscopy dose: 688 mGy 13:11:00 Flurop Dose total: 688 13:11:05 Contrast amount:Isovue 300 96ml. 13:11:07 Sharps counted by scrub and verified by R.N. 13:11:10 Post-op/insertion site Right Femoral artery dressed using a 4 x 4 and Tegaderm. 13:11:17 Post right femoral artery:stable, soft, clean and dry 13:11:28 Plavix 600 mg P.O. was administered by Kevin Godoy RN; for antiplatelet therapy; 13:11:36 Post procedure: right dorsailis pedis pulse 2+ Normal; easily identifiable; not easily obliterated. 13:11:39 Post-procedure physical assessment completed. ASA score P 2 - A patient with mild systemic disease as per Anuel Lane MD. 13:11:43 Post procedure rhythm: unchanged. 13:11:45 Estimated blood loss: 10 ml 13:11:46 Post procedure instruction explained to patient.Patient verbalizes understanding. 13:11:47 Patient needs reinforcement of post procedure teaching. 13:13:37 Procedure type changed to Cath procedure, Diagnostic procedure, LHC, LHC w/Coronaries, PCI procedure, PTCA, PTCA Initial, Peripheral Cath Diagnostic Procedure, Cath Peripheral, Four Vessel Arteriogram 13:17:12 Procedure and supply charges have been captured, reviewed, submitted and are correct. 13:17:14 Procedure Complication : No complications 13:17:16 Vital chart was stopped 13:17:17 See physician's report for complete and final results. 13:17:19 Report given to Pre/Post Procedure Room. 13:17:22 Patient transfered to Pre/Post Procedure Room with Bed. 13:17:26 Procedure ended. 13:17:26 Full Disclosure recording stopped 13:17:28 End room use (Document Last) Intervention Summary Intervention Notes Time ActionType Lesion and Equipment Action# Pressure Duration Attributes Used 13:08:56 Inflate Dist LAD EUPHORA 1 15 00:10 balloon 2.0 x 30 Balloon ([id number]) 13:09:08 Reinflate Dist LAD EUPHORA 2 17 00:10 balloon 2.0 x 30 Balloon ([id number]) 13:09:33 Reinflate Dist LAD EUPHORA 3 19 00:10 balloon 2.0 x 30 Balloon ([id number]) 13:09:44 Reinflate Dist LAD EUPHORA 4 15 00:10 balloon 2.0 x 30 Balloon ([id number]) Device Usage Item Name Manufacture Quantity Catalog Number Hospital Part Current Mini [facility] Lot# / Charge Number Stock Stock Serial# Code ACIST Acist 1 36203 387033 477549 763380 20 Syringe Medical (82963) Systems Inc Bag Decanter Microtek 1 2001S 598454 43714 721529 5 (2001S) Medical Inc. ACIST Hand Acist 1 93019 245252 519829 342976 5 Control Medical (77592) Systems Inc ACIST Acist 1 18378 530600 778382 688497 5 Manifold Medical (15878) Systems Inc Tegaderm 4 x 3M 1 1626W 729068 365314 694863 5 4 (1626W) Medline Cath Cardinal 1 [id number] 525105 84891 284050 5 [facility] ([id number]) SHEATH 5FR Terumo 1 GNB617 304902 582361 076589 40 Sweet Briar (CVM844) DIAGNOSTIC St Satnam 1 870543 957171 258046 869190 30 WIRE .035 260cm J wire (314152) DIAGNOSTIC Cardinal 1 GV1587 513946 83822 152132 30 Multipack Health 5Fr catheter set (IY0571) PERCUTANEOUS Cook Medical 1 B04949 622011 841300 5 ENTRY 19GA needle MULTIPACK Cardinal 1 792785 5 Pigtail 5 Fr Health catheter MULTIPACK JL Cardinal 1 738623 5 4.0 5Fr Health catheter Merit Medtronic 1 A08A 405896 96052 242093 5 INFLATION SYRINGE SHEATH 6FR Terumo 1 BYZ825 042547 500010 337338 40 Sweet Briar (XRF120) MULTIPACK Cardinal 1 635090 5 3DRC 5Fr Health catheter CHOICE PT [place] 1 [id number] 432372 658112 747652 5 Extra Scientific Support 182cm wire ([id number]) GUIDE 6FR Cardinal 1 [id number] 908751 531078 998069 10 XBLAD 3.5 Health catheter ([id number]) EUPHORA 2.0 Medtronic 1 [id number] 906801 417029 159610 5 [id number] x 30 Balloon ([id number]) EXOSEAL 6Fr Cardinal 1 EX600 677285 278492 433558 10 (EX600) Health Signature Audit [place] Stage Time Signature Unsigned Intra-Procedure 09/04/2017 Karla Jorgensen 1:17:53 PM RT(R) Signatures Monitor : Karla Jorgensen Signature : RT Date : Time : [address] [place] [address]
--- NOTE | ~2017-09-04 | OP ---
PATIENT NAME: PETEY RANGEL MEDICAL RECORD: [id number] :53 LOCATION:D.CAT ADMISSION DATE: SURGEON: ABDI BETANCOURT MD DATE OF OPERATION: 09/04/2017 PROCEDURES: 1. PTCA, LAD. 2. Left heart catheterization. 3. Selective coronary angiography. 4. Left ventriculogram. 5. Four-vessel carotid and vertebral angiography. INDICATION: Angina and coronary artery disease. DESCRIPTION OF PROCEDURE: After informed consent was obtained and after a detailed explanation of the risk, benefits as well as alternative therapies, the patient elected to proceed with angiogram and angioplasty. The right femoral area was prepped and draped in normal sterile fashion. The right femoral artery was cannulated via modified Seldinger technique with placement of 6-Setswana sheath. All catheters exchanged through this sheath. FINDINGS: The left ventriculogram was performed in the standard 30-degree BRAR view, reveals good cardiac wall motion, ejection fraction 55%. SELECTIVE CORONARY ANGIOGRAPHY: 1. Left main is with no significant angiographic disease. 2. Left anterior descending has previously placed stents. There was up to 80% in-stent restenosis in the very distal part of this vessel. 3. Left circumflex has moderate irregularities, but no flow-limiting stenosis. 4. The right coronary has previously placed stents with no significant restenosis. No disease elsewise at the RCA or its branches. FOUR-VESSEL CAROTID AND VERTEBRAL ANGIOGRAPHY: There was subselection of each subclavian as well as left carotid. RIGHT SIDE: Common internal and external carotids have mild plaquing, none greater than 10%, no flow-limiting stenosis. Vertebral arteries devoid of disease. LEFT SIDE: Common internal and external carotids have mild plaquing, none greater than 10%, no flow-limiting stenosis. Vertebral arteries devoid of disease. PTCA of the LAD: The balloon used was a 2.0 x 30 mm balloon. Multiple inflations were made in the very distal LAD for the in-stent restenosis. Result was 0% residual stenosis. OVERALL IMPRESSION: 1. Successful percutaneous transluminal coronary angioplasty for in-stent restenosis of the left anterior descending going from 80% initial stenosis to 0% residual stenosis. 2. Preserved left ventricular function. 3. No significant carotid vascular disease is present. TRANSINT:[id number] Voice Confirmation ID: [id number] DOCUMENT ID: [id number] OPERATIVE REPORT [id number] PETEY RANGEL, ABDI DENIS at 1057 CC: [id number] DICTATION DATE: 09/04/17 1333 VB DEVELOPER: 09/04/17 1350 DEP CLI 09/04/17 [id number] [place] [address]
--- NOTE | ~2017-09-04 | HP ---
PATIENT: PETEY LAKHANI MEDICAL RECORD: [id number] ACCOUNT: [id number] LOCATION:DANIEL : 53 ADMISSION DATE: 09/04/17 HISTORY AND PHYSICAL EXAMINATION DIAGNOSES: 1. Unstable angina. 2. Coronary artery disease. 3. Previous multivessel PTCA and stent. 4. Dizziness, near syncope. 5. Hypertension. 6. Hyperlipidemia. HISTORY OF PRESENT ILLNESS: Mr. Lakhani presents with increasing episodes of chest pain, chest discomfort, probable angina, shortness of breath as well as dizziness. These are the symptomatologies he has had in the past with hemodynamically significant coronary artery disease. He is status post previous multivessel PTCA and stent. PHYSICAL EXAMINATION: GENERAL APPEARANCE: Well-nourished, well-developed, appears stated age. Level of distress, comfortable. PSYCHIATRIC: Mental status, alert, normal affect. Orientation, oriented to time, place and person. EYES: Lids and conjunctiva, noninjected. No discharge, no pallor. ENT: Lips, teeth, gums, normal dentition. Oropharynx, no cyanosis, no pallor. NECK: Carotid arteries, bilateral normal upstroke, no bruits, no thrills. JUGULAR VEINS: No jugular venous pressure or distention. CERVICAL LYMPH NODES: Nontender, nonenlarged. THYROID: Not enlarged. Nontender. No nodules. LUNGS: Respiratory effort, unlabored. CHEST: Normal curvature. No thoracic deformity. No chest wall tenderness. Percussion, resonant. Auscultation, clear. No wheezes, no rales, no rhonchi. CARDIOVASCULAR: Precordial exam, nondisplaced. No heaves or pericardial thrills. Rate and rhythm, regular. Heart sounds, normal S1, normal S2. No S3, no gallop, no rub. Systolic murmur, not heard. Diastolic murmur, not heard. EXTREMITIES: No cyanosis, no edema. Peripheral pulses, full and equal in all extremities, except as noted. No bruits appreciated. ABDOMEN: Soft, nondistended. Normal aorta. No bruit. Nontender. No masses. Liver, nontender, no hepatomegaly. Spleen, nontender, no splenomegaly. MUSCULOSKELETAL: No joint tenderness. No joint swelling. No erythema. NEUROLOGICAL: Normal gait, normal strength, normal tone. SKIN: Warm and dry. REVIEW OF SYSTEMS: The patient reports easy bruising but reports no swollen glands. The patient reports no fever, no night sweats, no significant weight gain, no significant weight loss. No significant exercise tolerance. The patient reports no dry eyes, no irritation, no vision change. Patient reports no difficulty hearing and no ear pain. Patient reports no frequent nose bleeds or nose and sinus problems. Patient reports on arm pain on exertion. No shortness of breath while lying down. No history of heart murmur. Patient reports no cough, no wheezing or coughing up blood. Patient reports no abdominal pain, no vomiting. Normal appetite. No diarrhea and not vomiting blood. No nausea and no constipation. Patient reports no incontinence. No difficulty urinating. No hematuria. No increased frequency. Patient reports HISTORY AND PHYSICAL [id number] PETEY LAKHANI no muscle aches. No weakness, no arthralgias, no back pain. No swelling of the extremities. Patient reports no abnormal mole, no jaundice, no rashes. Reports no loss of consciousness. No weakness and no numbness. No seizures, dizziness, or headaches. The patient reports no depression, no sleep disturbance, feeling safe in a relationship and no alcohol abuse. Patient reports on fatigue. Reports no runny nose or sinus pressure. No itching, no hives, and no frequent sneezing. OVERALL IMPRESSION: Chest pain compatible with angina, most likely he has recurrent hemodynamically significant coronary artery disease. We will proceed with coronary angiography. Further care depends upon the findings of the angiography. TRANSINT:[id number] Voice Confirmation ID: [id number] DOCUMENT ID: [id number] ABDI BETANCOURT MD at 1057 CC: [id number] DICTATION DATE: 09/04/17 1331 ELECTROENCEPHALOGRAPHIC TECHNICIAN: 09/04/17 1455 DEP CLI 09/04/17 [facility] [address] [place] [address]
[2017-09-04 11:27] VITALS: BP 122/70; Ht 177.8 cm; Wt 90.9 kg
[2017-09-04 11:41] LABS: BASOPHILS 0.3 % (0-2); EOSINOPHILS 2.1 % (0-7); HEMATOCRIT 43.9 % (42.0-54.0); HEMOGLOBIN 15.3 g/dL (13.5-17.5); IMMATURE GRANULOCYTES 0.2 % (0-5); LYMPHOCYTES 36.7 % (15-50); MCH 33.6 pg (26.0-34.0); MCHC 34.9 g/dL (31.0-37.0); MCV 96.5 fL (80.0-100.0); MEAN PLATELET VOLUME 9.7 fL (7.4-10.4); MONOCYTES 8.3 % (2-11); NEUTROPHILS 52.4 % (40-80); PLATELET COUNT 253 10x3/uL (130-400); RBC 4.55 10x6/uL (4.20-6.10); RDW 12.6 % (11.5-14.5); WBC 6.1 10x3/uL (4.8-10.8)
[2017-09-04 12:27] LABS: CALC OSMOLALITY 277 mosm/kg (275-300); CALCIUM 9.1 mg/dL (8.5-10.1); CARBON DIOXIDE 27.7 mmol/L (21.0-32.0); CHLORIDE - SERUM 102 mmol/L (98-107); CREATININE - SERUM 0.8 mg/dL (0.6-1.3); GLUCOSE 89 mg/dL (74-106); POTASSIUM - SERUM 4.4 mmol/L (3.5-5.1); SODIUM 139 mmol/L (136-145); UREA NITROGEN 14 mg/dL (7-18); eGFR NON AFRICAN AMERICAN > 90 mL/min (90-120)
== END 2017-09-04 17:00 | disposition home or self-care (01) ==
LOC: D.CATH 10:51
PROVIDERS: Internal Medicine Interventional Cardiology
DX: I25.110 Atherosclerotic heart disease of native coronary artery with unstable angina pectoris (principal); T82.855A Stenosis of coronary artery stent, initial encounter; R42 Dizziness and giddiness; R55 Syncope and collapse; I10 Essential (primary) hypertension; E78.5 Hyperlipidemia, unspecified; Z01.812 Encounter for preprocedural laboratory examination

== ENCOUNTER 2017-12-29 09:15 | Observation (INO) | payer BC ==
[~2017-12-29] VITALS: Ht 177.8 cm; Wt 93.2 kg
--- NOTE | ~2017-12-29 | OP ---
PATIENT NAME: PETEY RANGEL MEDICAL RECORD: [id number] :53 LOCATION:VIC StewartCL02 ADMISSION DATE:12/29/17 SURGEON: ARMANDO YATES MD DATE OF OPERATION: 12/30/2017 PROCEDURE: Left heart catheterization, selective coronary angiography, right radial approach. CATHETER: Radial sheath, Rimrock catheter. Procedure was well tolerated. Sheath removed. TR band was placed. FINDINGS: Left ventriculography in 30-degree BRAR view: Normal wall motion and normal systolic function. CORONARY ANATOMY: LEFT MAIN: Left main is free of disease. LAD: Very distal, an area of previous stenting shows some other restenosis, certainly cause angina; however, the amount of myocardium distally is minuscule. CIRCUMFLEX: Free of disease. RIGHT CORONARY ARTERY: Dominant artery, gives rise to PDA, free of disease. IMPRESSION: Normal systolic function. Restenosis, given location suspect this will be managed medically. I will increase the Ranexa to 1 gram b.i.d. Could all long acting nitrates in the future if needed. TRANSINT:[id number] Voice Confirmation ID: [id number] DOCUMENT ID: [id number] ARMANDO YATES MD at 1254 CC: [id number] DICTATION DATE: 12/30/17 1403 MANAGER FRONT: 12/30/17 1410 DIS IN 12/30/17 [address] [place] [address]
--- NOTE | ~2017-12-29 | HEMODYNAMI ---
PATIENT:PETEY RANGEL MEDICAL RECORD: [id number] : 53 LOCATION:[facility] D.[address] [facility]# [id number] ADMISSION DATE: 12/29/17 Generatedon:12/30/201713:59 Patient name: PETEY RANGEL Patient #: [id number] : 1955 Date of study: 12/30/2017 Page: Of Hemodynamic Procedure Report Patient Data Patient Demographics Procedure consent was obtained First Name: PETEY Gender: Male Last Name: CLAIRE : 1955 [facility] Initial: VAISHALI Age: 62 year(s) Patient #: [id number] Race: SSN: [id number] Additional ID: [id number] Contact details Address: [address] [address] State: [place] City: [place] Zip code: [address] Past Medical History Allergies Allergen Reaction Date Comments Reported Other allergy 06/22/2015 Codeine Other allergy 06/22/2016 codeine, hydrocodone Other allergy 02/15/2017 codeine Other allergy 09/04/2017 CODEINE, HYDROCODONE Other allergy 12/30/2017 codeine, hydrocodone Admission Admission Data Admission Date: 12/29/2017 Admission Time: 12:14 Arrival Date: 12/30/2017 Arrival Time: 0:00 Admit Source: Other Insurance Payor: Private Room #: [id number] health insurance Height (in.): 69.69 BSA: 2.1 (m2) Height (cm.): 177 BMI: 29.68 (kg/m2) Weight (lbs.): 205.03 Weight (kg.): 93 Lab Results Lab Result Date: 12/30/2017 Lab Result Time: 4:10 Biochemistry Name Units Result Min Max BUN mg/dl 11 --(-*--)-- 7 18 Creatinine mg/dl 0.7 --(*---)-- 0.6 1.3 CBC Name Units Result Min Max Hematocrit % 41.5 -*(----)-- 42 54 Hemoglobin g/dl 14.4 --(*---)-- 13.5 17.5 Procedure Procedure Types Cath Procedure Diagnostic Procedure [facility] w/Coronaries Sedation Charges Moderate Sedation up to 15 minutes Procedure Description Procedure Date Procedure Date: 12/30/2017 Procedure Start Time: 13:47 Procedure End Time: 13:57 Procedure Staff Name Function Giles Hinton MD Performing Physician Roderick Izquierdo RT Scrub Mony Long RN Nurse Cher Smith RT Monitor Procedure Data Cath Procedure Fluoroscopy Diagnostic fluoroscopy Total fluoroscopy Time: 1.8 time: 1.8 min min Diagnostic fluoroscopy Total fluoroscopy dose: 786 dose: 786 mGy mGy Contrast Material Contrast Material Type Amount (ml) Isovue 300 56 Entry Location Entry Primary Successful Side Size Upsize Upsize Entry Closure Daley ccessful Closure Location (Fr) 1 (Fr) 2 (Fr) Remarks Device Remarks Radial Right 6 Fr Mechanical artery Short Compression Estimated blood loss: 5 ml Diagnostic catheters Device Type Used For End Catheter Placement DIAGNOSTIC [place] 110cm 5 Multi-vessel Fr catheter ([id number]) Angiography Procedure Complications No complications Procedure Medications Medication Administration Route Dosage Oxygen etCO2 Nasal cannula 2 l/min Lidocaine 2% added to field 20 Heparin Flush Bag added to field 2 bags (1000units/500ml NS) 0.9% NaCl I.V. 100 ml/hr Versed I.V. 2 mg Fentanyl I.V. 100 mcg Versed I.V. 1 mg Fentanyl I.V. 50 mcg Versed I.V. 1 mg Fentanyl I.V. 50 mcg Radial Cocktail I.A. 1 syringe (Verapomil 2mg/Nitro 400mcg/Heparin 1500units) Hemodynamics Rest BSA: 2.1 (m2) O2 Consumption: Estimated: 240.74 (ml/min) O2 Consumption indexed: Estimated:114.64 (ml/min/m) Heart Rate: 64 (bpm) Pressure Samples Time Site Value (mmHg) Purpose Heart Use Rate(bpm) 13:50 LV 95/4,7 Snapshot 64 13:51 AO 104/87(74) Pullback 64 13:51 LV 94/6,9 Pullback 64 Gradients Valve Time Site 1 Site 2 Mean SEP/DFP Peak To Heart Use (mmHg) (sec/min) Peak Rate (mmHg) (bpm) Aortic 13:51 LV AO 0 13 0 64 94/6,9 104/87(74) Calculations Valve P-P Mean Valve Index Valve Source Name Gradient Area Flow (cm2) Aortic 0 0 0 0 Snapshots Pre Cath Intra NCS Post Cath Vital Signs Time Heart Resp SPO2 etCO2 NIBP (mmHg) Rhythm Pain Sedation Rate (ipm) (%) (mmHg) Status Level (bpm) 13:35:41 59 43 94 38.3 123/73(97) NSR 0 (11) 10(A) , No pain 13:39:52 57 51 93 41.3 113/67(94) NSR 0 (11) 10(A) , No pain 13:43:57 58 24 95 42.1 115/73(89) NSR 0 (11) 9(A) , No pain 13:47:59 64 16 98 25.5 124/78(95) NSR 0 (11) 9(A) , No pain 13:52:13 63 16 94 0 105/58(80) NSR 0 (11) 9(A) , No pain 13:56:19 66 39 94 39.1 121/61(105) NSR 0 (11) 10(A) , No pain Medications Time Medication Route Dose Verified Delivered Reason Notes Effectiveness by by 13:34:42 Oxygen etCO2 2 l/min Giles Sykes used for Nasal St Bonilla Long RN procedure cannula 13:34:49 Lidocaine 2% added 20ml Giles Giles for local to vial [facility] anesthetic field MD DENIS 13:34:55 Heparin Flush added 2 bags Giles Skaggs used for Bag to [facility] procedure (1000units/500ml field MD DENIS NS) 13:35:03 0.9% NaCl I.V. 100 Giles Frankie Per ml/hr St Bonilla Long RN physician 13:39:29 Versed I.V. 2 mg Giles Frankie for sedation St Bonilla Long RN, MD 13:39:34 Fentanyl I.V. 100 mcg Giles Frankie for sedation St Bonilla Long RN, MD 13:42:19 Versed I.V. 1 mg Giles Buffie for sedation St Bonilla Long RN, MD 13:42:22 Fentanyl I.V. 50 mcg Giles Marieie for sedation St Bonilla Long RN, MD 13:49:37 Versed I.V. 1 mg Giles Buffie for sedation St Bonilla Long RN, MD 13:49:40 Fentanyl I.V. 50 mcg Giles Sykes for sedation St Bonilla Long RN, MD 13:49:47 Radial Cocktail I.A. 1 Giles Skaggs for (Verapomil syringe St Bonilla Hinton vasodilation 2mg/Nitro MD DENIS 400mcg/Heparin 1500units) Procedure Log Time Note 13:08:53 Informed consent obtained and on chart 13:08:55 Admit Source: Other 13:09:09 Diagnostic Cath status Elective 13:09:10 Mony Long RN sent for patient. Start room use. 13:09:11 Time tracking: Regular hours (M-F 7:00 - 5:00) 13:09:14 Plan of Care:Hemodynamics will remain stable., Cardiac rhythm will remain stable., Comfort level will be maintained., Respiratory function will remain adequate., Patient/ family verbilizes understanding of procedure., Procedure tolerated without complication., Recovers from procedure without complications.. 13:09:22 H&P Date Dictated: 12/29/2017 Within 30 days and on chart.. 13::53 Lab Result : Creatinine 0.7 mg/dl 13::53 Lab Result : BUN 11 mg/dl 13::53 Lab Result : Hemoglobin 14.4 g/dl 13::53 Lab Result : Hematocrit 41.5 % 13::55 Lab results completed and on chart. 13:16:50 Patient received from Med II to CCL 2 Alert and oriented. Tansferred to table in Supine position. 13:16:51 Warm blankets applied, and amparo hugger turned on for patient comfort. 13:16:56 Correct patient and procedure confirmed by team. 13:17:24 ECG and BP/O2 sat monitors applied to patient. 13:17:25 Pre-procedure instructions explained to patient. 13:17:25 Pre-op teaching completed and patient verbalized understanding. 13:17:28 Family in patients room. 13:17:30 Patient NPO since Midnight. 13:17:47 Patient allergic to Other allergycodeine, hydrocodone 13:17:49 Is the patient allergic to Iodine/contrast media? No. 13:24:30 Was the patient premedicated? No 13:25:29 Is patient on blood thinner?Yes 13:25:33 ACC The patient was administered the following blood thiners within the last 24 hours: ACCPlavix 13:26:27 patient states he had been off his plavix for two weeks; however was given 75 of Plavix yesterday 13:26:31 Patient diabetic? No. 13:26:34 Previous problem with sedation/anesthesia? No ? 13:26:36 Snore? No 13:26:37 Sleep apnea? No 13:26:38 Deviated septum? No 13:26:39 Opens mouth fully? Yes 13:26:40 Sticks out tongue? Yes 13:26:42 Airway obstruction? No ? 13:26:44 Dentures? No ? 13:26:47 Pre procedure: right dorsailis pedis pulse 2+ Normal; easily identifiable; not easily obliterated 13:26:50 Pre procedure: left dorsailis pedis pulse 2+ Normal; easily identifiable; not easily obliterated 13:26:52 Patient pain scale 0/10 ?. 13:26:59 IV patent on arrival in left forearm with 0.9% NaCl at [facility]. 13:27:03 Right Radial & Right Groin area was prepped with chlora-prep and draped in sterile fashion 13:27:04 Alarms reviewed by R. N. 13:27:05 Sharps counted by scrub and verified by R.N. 13:33:59 Physician arrived 13:33:59 --------ALL STOP TIME OUT------ 13:33:59 Final Timeout: patient, procedure, and site verified with staff and physician. All members of the team are in agreement. 13:34:02 Right Radial & Right Groin site verified by team. 13:34:29 Vital chart was started 13:34:42 Oxygen 2 l/min etCO2 Nasal cannula was administered by Mony Long RN; used for procedure; 13:34:49 Lidocaine 2% 20ml vial added to field was administered by Giles Hinton MD; for local anesthetic; 13:34:55 Heparin Flush Bag (1000units/500ml NS) 2 bags added to field was administered by Giles Hinton MD; used for procedure; 13:35:03 0.9% NaCl 100 ml/hr I.V. was administered by Mony Long RN; Per physician; 13:35:32 Physical assessment completed. ASA score P 2 - A patient with mild systemic disease as per Giles Hinton MD. 13:35:36 Sedation plan: IV Moderate Sedation Medication:Versed, Fentanyl 13:36:14 Use device set Radial Dx or PCI 13:36:16 ACIST Syringe (40284) opened to sterile field. 13:36:16 Medline Cath Pack ([id number]) opened to sterile field. 13:36:16 Bag Decanter (2002S) opened to sterile field. 13:36:17 DIAGNOSTIC WIRE .035 260cm J wire (242452) opened to sterile field. 13:36:17 ACIST Hand Control (96935) opened to sterile field. 13:36:18 ACIST Manifold (17225) opened to sterile field. 13:36:19 Tegaderm 4 x 4 (1626W) opened to sterile field. 13:36:20 MBrace Wrist Support ([id number]) opened to sterile field. 13:36:21 SHEATH 6Fr Prelude Radial ([id number]) opened to sterile field. 13:39:29 Versed 2 mg I.V. was administered by Mony Long RN; for sedation; 13:39:34 Fentanyl 100 mcg I.V. was administered by Mony Long RN; for sedation; 13:42:19 Versed 1 mg I.V. was administered by Mony Long RN; for sedation; 13:42:22 Fentanyl 50 mcg I.V. was administered by Mony Long RN; for sedation; 13:44:30 Procedure started. 13:44:30 Full Disclosure recording started 13:47:29 Local anesthetic to right radial artery with Lidocaine 2% by Giles Hinton MD.INITIAL ACCESS ONLY 13:47:58 A 6 Fr Short sheath was inserted into the Right Radial artery 13:48:09 A DIAGNOSTIC [place] 110cm 5 Fr catheter (642486) was advanced over the wire and used for Multi-vessel Angiography. 13:49:37 Versed 1 mg I.V. was administered by Mony Long RN; for sedation; 13:49:40 Fentanyl 50 mcg I.V. was administered by Mony Long RN; for sedation; 13:49:47 Radial Cocktail (Verapomil 2mg/Nitro 400mcg/Heparin 1500units) 1 syringe I.A. was administered by Giles Hinton MD; for vasodilation; 13:50:52 LV hemodynamics recorded. 13:50:53 LV gram done using BRAR 13:50:55 Injector settings: Ml/sec: 5, Volume: 15, 13:51:13 EF : 55 % 13:51:27 LCA angiography performed. 13:51:29 Injector settings: Ml/sec: 3, Volume: 6, 13:53:17 RCA angiography performed. 13:53:20 Injector settings: Ml/sec: 3, Volume: 6, 13:53:33 Catheter removed. 13:54:05 TR BAND Standard ([id number]) opened to sterile field. 13:55:45 Sheath removed intact; hemostasis achieved with Mechanical Compression to the Right Radial artery. 13:55:46 Procedure ended.(Physican Out) 13:55:56 Fluoroscopy time 01.80 minutes. 13:56:01 Flurop Dose total: 786 13:56:01 Fluoroscopy dose: 786 mGy 13:56:06 Contrast amount:Isovue 300 56ml. 13:56:08 Sharps counted by scrub and verified by R.N. 13:56:12 TR band inflated with 10cc of air. 13:56:13 Insertion/operative site no bleeding no hematoma. 13:56:19 Post right radial artery:stable 13:56:21 Post Procedure Pulses reassessed and unchanged 13:56:23 Post procedure rhythm: unchanged. 13:56:26 Estimated blood loss: 5 ml 13:56:27 Post procedure instruction explained to patient.Patient verbalizes understanding. 13:56:27 Patient needs reinforcement of post procedure teaching. 13:56:45 Procedure type changed to Cath procedure, Diagnostic procedure, LHC, LHC w/Coronaries, Sedation Charges, Moderate Sedation up to 15 minutes 13:56:45 Procedure and supply charges have been captured, reviewed, submitted and are correct. 13:56:49 Procedure Complication : No complications 13:56:51 Vital chart was stopped 13:56:52 See physician's report for complete and final results. 13:57:07 Report given to [facility]. 13:57:11 Patient transfered to [facility] with Stretcher. 13:57:13 Procedure ended. 13:57:13 Full Disclosure recording stopped 13:57:21 End room use (Document Last) 13:57:57 Arrival Date: 12/30/2017 12:00:00 AM 13:58:06 Insurance Payor : Private health insurance 13:58:19 Patient Height : 69.69 inches 13:58:22 Patient Weight : 205.03 lbs Device Usage Item Name Manufacture Quantity Catalog Number Hospital Part Current M inimal Lot# / Charge Number Stock Stock Serial# Code ACIST Syringe Acist 1 58047 [id number] 866776 [id number] 2 0 (47263) [employer] Medline Cath Cardinal 1 [id number] 01552 180305 5 [facility] ([id number]) Bag Decanter Microtek 1 2001S 482697 97346 569103 5 (2001S) Medical Inc. DIAGNOSTIC WIRE St Satnam 1 887032 421953 247367 820127 3 0 .035 260cm J wire (919816) ACIST Hand Acist 1 41704 780134 863897 708968 5 Control (98563) [employer] ACIST Manifold Acist 1 04588 193826 898756 598030 5 (37833) [employer] Inc Tegaderm 4 x 4 3M 1 1626W 646828 675108 698944 5 (1626W) MBrace Wrist Advanced 1 140-0250-00 591797 20834 136570 5 Support Vascular ([id number]) Dynamics SHEATH 6Fr Merit 1 [id number] 292389 891506 830492 5 Prelude Radial Medical ([id number]) DIAGNOSTIC Terumo 1 40-2251 211172 175395 404947 5 [place] 110cm 5 Fr catheter (583731) TR BAND Terumo 1 [id number] 084515 841738 361004 4 0 Standard ([id number]) Signature Audit [place] Stage Time Signature Unsigned Intra-Procedure 12/30/2017 Cher Smith 1:59:11 PM RT(R) Signatures Monitor : Cher mSith RT Signature : Date : Time : [facility] [address] [place] [address]
--- NOTE | ~2017-12-29 | HP ---
PATIENT: PETEY RANGEL MEDICAL RECORD: [id number] ACCOUNT: [id number] LOCATION:[facility].2118 : 54 ADMISSION DATE: 12/29/17 HISTORY AND PHYSICAL EXAMINATION HISTORY OF PRESENT ILLNESS: A 62-year-old gentleman with known history of coronary artery disease, status post multiple interventions, most recently intervention to the LAD with restenosis. Began having angina last couple of days, chest tightness and pressure radiating to the jaw classic for his angina. He has been on moderate dose Ranexa. Continues on Plavix, aspirin. PAST MEDICAL HISTORY: Includes: 1. History of coronary artery disease. 2. Dyslipidemia. ALLERGIES: CODEINE, HYDROCODONE. SOCIAL HISTORY: , lives here in [place]. Nonsmoker, social drinker. Easily takes care of all his ADLs. Does try to exercise on a regular basis. REVIEW OF SYSTEMS: The patient reports easy bruising but reports no swollen glands. The patient reports no fever, no night sweats, no significant weight gain, no significant weight loss. No significant exercise tolerance. The patient reports no dry eyes, no irritation, no vision change. Patient reports no difficulty hearing and no ear pain. Patient reports no frequent nose bleeds or nose and sinus problems. Patient reports on arm pain on exertion. No shortness of breath while lying down. No history of heart murmur. Patient reports no cough, no wheezing or coughing up blood. Patient reports no abdominal pain, no vomiting. Normal appetite. No diarrhea and not vomiting blood. No nausea and no constipation. Patient reports no incontinence. No difficulty urinating. No hematuria. No increased frequency. Patient reports no muscle aches. No weakness, no arthralgias, no back pain. No swelling of the extremities. Patient reports no abnormal mole, no jaundice, no rashes. Reports no loss of consciousness. No weakness and no numbness. No seizures, dizziness, or headaches. The patient reports no depression, no sleep disturbance, feeling safe in a relationship and no alcohol abuse. Patient reports on fatigue. Reports no runny nose or sinus pressure. No itching, no hives, and no frequent sneezing. PHYSICAL EXAMINATION: GENERAL: Pleasant gentleman in no acute distress. VITAL SIGNS: Blood pressure 108/65, pulse 87 regular. HEENT: Normocephalic, atraumatic. NECK: No bruits are noted. HEART: Regular, I-II/ ejection murmur. LUNGS: Clear. ABDOMEN: Soft, nontender. EXTREMITIES: Pulses 2+. No edema. DIAGNOSTIC DATA: ECG without acute change. IMPRESSION: Suspect restenosis. We will plan for angiography, intervention based on above. TRANSINT:[id number] Voice Confirmation ID: [id number] DOCUMENT ID: [id number] HISTORY AND PHYSICAL [id number] PETEY RANGEL,ARMNADO Lane MD at 1117 CC: [id number] DICTATION DATE: 12/30/17 1047 ANALYST: 12/30/17 1104 ADM IN [facility] [address] [id number]
[2017-12-29 09:30] VITALS: BP 114/53
[2017-12-29 09:43] LABS: BASOPHILS 0.5 % (0-2); EOSINOPHILS 3.3 % (0-7); HEMATOCRIT 40.5 % (42.0-54.0); IMMATURE GRANULOCYTES 0.2 % (0-5); LYMPHOCYTES 32.7 % (15-50); MCH 33.2 pg (26.0-34.0); MCHC 34.6 g/dL (31.0-37.0); MEAN PLATELET VOLUME 9.6 fL (7.4-10.4); MONOCYTES 7.6 % (2-11); NEUTROPHILS 55.7 % (40-80); PLATELET COUNT 202 10x3/uL (130-400); RBC 4.22 10x6/uL (4.20-6.10); RDW 12.6 % (11.5-14.5); WBC 6.4 10x3/uL (4.8-10.8)
[2017-12-29 09:48] LABS: APPEARANCE CLEAR (CLEAR); BILIRUBIN NEGATIVE (NEGATIVE); COLOR YELLOW (YELLOW); GLUCOSE NEGATIVE (NEGATIVE); KETONE NEGATIVE (NEGATIVE); NITRITE NEGATIVE (NEGATIVE); PROTEIN NEGATIVE (NEGATIVE); SPECIFIC GRAVITY 1.005 (1.005-1.020); UROBILINOGEN NORMAL (NORMAL)
[2017-12-29 09:51] LABS: APTT 26.1 SECONDS (22.8-39.4)
[2017-12-29 09:52] LABS: INR 0.99 (0.85-1.17); PROTIME 12.7 SECONDS (11.6-15.0)
[2017-12-29 09:56] LABS: ALBUMIN 3.2 g/dL (3.4-5.0); ALKALINE PHOSPHATASE 36 U/L (46-116); ALT (SGPT) 22 U/L (10-68); BILIRUBIN - TOTAL 0.89 mg/dL (0.2-1.3); CALC OSMOLALITY 277 mosm/kg (275-300); CALCIUM 8.3 mg/dL (8.5-10.1); CHLORIDE - SERUM 105 mmol/L (98-107); CREATININE - SERUM 0.7 mg/dL (0.6-1.3); GLUCOSE 92 mg/dL (74-106); PROTEIN - SERUM 5.9 g/dL (6.4-8.2); SODIUM 139 mmol/L (136-145); UREA NITROGEN 12 mg/dL (7-18); eGFR NON AFRICAN AMERICAN > 90 mL/min (90-120)
[2017-12-29 10:08] LABS: CKMB 0.6 U/L (0.0-3.6); CREATINE KINASE 68 UL (21-232); PRO BNP 116 pg/mL (0-125); TROPONIN-I < 0.017 ng/mL (0.000-0.060)
[2017-12-29 10:30] VITALS: BP 115/72
[2017-12-29 12:30] VITALS: BP 122/72
[2017-12-29 14:25] VITALS: BP 131/71; Ht 177.8 cm; Wt 93.2 kg
[2017-12-29] MEDS ORDERED: PLAVIX75 MG PO (14:28)
[2017-12-29 15:30] VITALS: BP 118/63
[2017-12-29 21:07] VITALS: BP 99/60
[2017-12-30 01:16] VITALS: BP 114/67
[2017-12-30 05:10] VITALS: BP 121/73
[2017-12-30 06:23] LABS: INR 1.07 (0.85-1.17); PROTIME 13.5 SECONDS (11.6-15.0)
[2017-12-30 06:26] LABS: BASOPHILS 0.3 % (0-2); EOSINOPHILS 2.8 % (0-7); HEMATOCRIT 41.5 % (42.0-54.0); HEMOGLOBIN 14.4 g/dL (13.5-17.5); IMMATURE GRANULOCYTES 0.2 % (0-5); LYMPHOCYTES 32.3 % (15-50); MCH 33.4 pg (26.0-34.0); MCHC 34.7 g/dL (31.0-37.0); MCV 96.3 fL (80.0-100.0); MEAN PLATELET VOLUME 10.6 fL (7.4-10.4); MONOCYTES 8.7 % (2-11); NEUTROPHILS 55.7 % (40-80); PLATELET COUNT 209 10x3/uL (130-400); RBC 4.31 10x6/uL (4.20-6.10); RDW 12.7 % (11.5-14.5); WBC 6.4 10x3/uL (4.8-10.8)
[2017-12-30 06:45] LABS: CALC OSMOLALITY 276 mosm/kg (275-300); CALCIUM 8.6 mg/dL (8.5-10.1); CARBON DIOXIDE 27.1 mmol/L (21.0-32.0); CHLORIDE - SERUM 106 mmol/L (98-107); CREATININE - SERUM 0.7 mg/dL (0.6-1.3); GLUCOSE 87 mg/dL (74-106); POTASSIUM - SERUM 4.2 mmol/L (3.5-5.1); SODIUM 140 mmol/L (136-145); UREA NITROGEN 11 mg/dL (7-18); eGFR NON AFRICAN AMERICAN > 90 mL/min (90-120)
[2017-12-30 10:00] VITALS: BP 108/65
== END 2017-12-30 18:20 | disposition home or self-care (01) ==
LOC: D.ER 09:15 → OBSVTIME 12:14 → D.M2 12:14 → D.EDHOLD 12:14 → D.M2 12:42 → D.CLR 12-30 14:13
PROVIDERS: Family Medicine
DX: T82.855A Stenosis of coronary artery stent, initial encounter (principal); Y83.8 Other surgical procedures as the cause of abnormal reaction of the patient, or of later complication, without mention of misadventure at the time of the procedure; I25.119 Atherosclerotic heart disease of native coronary artery with unspecified angina pectoris; E78.5 Hyperlipidemia, unspecified

== ENCOUNTER → 2018-04-02 07:39 | Outpatient (CLI) | payer BC ==
[~2018-04-02] VITALS: Ht 177.8 cm; Wt 95.5 kg
--- NOTE | ~2018-04-02 | HEMODYNAMI ---
PATIENT:PETEY RANGEL MEDICAL RECORD: [id number] : 53 LOCATION:[facility] ADMISSION DATE: 04/02/18 Generatedon:04/02/201811:27 Patient name: PETEY RANGEL Patient #: [id number] : 1955 Date of study: 04/02/2018 Page: Of Hemodynamic Procedure Report Patient Data Patient Demographics Procedure consent was obtained First Name: PETEY Gender: Male Last Name: CLAIRE : 1955 Middle Initial: VAISHALI Age: 62 year(s) Patient #: [id number] Race: SSN: [id number] Additional ID: [id number] Contact details Address: [place] [address] State: [place] City: [place] Zip code: [address] Past Medical History Allergies Allergen Reaction Date Comments Reported Other allergy 06/22/2015 Codeine Other allergy 06/22/2016 codeine, hydrocodone Other allergy 02/15/2017 codeine Other allergy 09/04/2017 CODEINE, HYDROCODONE Other allergy 12/30/2017 codeine, hydrocodone Codeine 04/02/2018 Admission Admission Data Admission Date: 04/02/2018 Admission Time: 7:39 Height (in.): 61 BSA: 1.94 (m2) Height (cm.): 154.94 BMI: 40.43 (kg/m2) Weight (lbs.): 214 Weight (kg.): 97.07 Procedure Procedure Types Cath Procedure Diagnostic Procedure LHC LHC w/Coronaries Sedation Charges Moderate Sedation up to 30 minutes PCI Procedure Coronary Atherectomy Atherectomy w/PTCA Coronary Initial Procedure Description Procedure Date Procedure Date: 04/02/2018 Procedure Start Time: 10:50 Procedure End Time: 11:23 Procedure Staff Name Function Anuel Lane MD Performing Physician Cher Smith RT Monitor Mony Long RN Nurse Bhumi Jerome RT Scrub Procedure Data Cath Procedure Fluoroscopy Diagnostic fluoroscopy Total fluoroscopy Time: 0 time: 0 min min Diagnostic fluoroscopy Total fluoroscopy dose: dose: 2287 mGy 2287 mGy Contrast Material Contrast Material Type Amount (ml) Isovue 300 110 Entry Location Entry Primary Successful Side Size Upsize Upsize Entry Closure Succes sful Closure Location (Fr) 1 (Fr) 2 (Fr) Remarks Device Remarks Radial Right 6 Fr Exoseal artery Short Estimated blood loss: 5 ml Diagnostic catheters Device Type Used For End Catheter Placement DIAGNOSTIC [place] 110cm 5 Multi-vessel Fr catheter ([id number]) Angiography Procedure Complications No complications Procedure Medications Medication Administration Route Dosage Oxygen etCO2 Nasal cannula 2 l/min Lidocaine 2% added to field 20 Heparin Flush Bag added to field 2 bags (1000units/500ml NS) 0.9% NaCl I.V. 100 ml/hr Radial Cocktail I.A. 1 syringe (Verapomil 2mg/Nitro 400mcg/Heparin 1500units) Versed I.V. 2 mg Fentanyl I.V. 100 mcg Versed I.V. 2 mg Fentanyl I.V. 100 mcg Heparin Bolus I.V. 4000 units Integrilin (Bolus I.V. 8.5 ml 2mg/ml) Versed I.V. 2 mg Fentanyl I.V. 100 mcg Integrilin (Bolus I.V. 8.5 ml 2mg/ml) Nitroglycerin IC/IA I.C. 100 mcg Nitroglycerin IC/IA I.C. 100 mcg Plavix P.O. 600 mg Hemodynamics Rest BSA: 1.94 (m2) O2 Consumption: Estimated: 222.74 (ml/min) O2 Consumption indexed : Estimated:114.81 (ml/min/m) Heart Rate: 64 (bpm) Pressure Samples Time Site Value (mmHg) Purpose Heart Use Rate(bpm) 10:52 LV 57/13,17 Snapshot 99 Snapshots Pre Cath Intra NCS Post Cath Vital Signs Time Heart Resp SPO2 etCO2 NIBP (mmHg) Rhythm Pain Sedation Rate (ipm) (%) (mmHg) Status Level (bpm) 10:06:28 64 14 99 33.1 122/74(99) NSR 0 (11) 10(A) , No pain 10:10:38 65 26 99 33.1 122/66(101) NSR 0 (11) 10(A) , No pain 10:14:45 59 15 96 36.9 110/72(93) NSR 0 (11) 10(A) , No pain 10:18:53 57 13 99 40.6 113/62(91) NSR 0 (11) 10(A) , No pain 10:22:59 57 16 99 39.2 110/65(91) NSR 0 (11) 10(A) , No pain 10:27:05 60 16 100 37.7 109/67(93) NSR 0 (11) 10(A) , No pain 10:31:11 59 12 97 41.4 104/61(87) NSR 0 (11) 10(A) , No pain 10:35:15 69 17 98 39.2 115/66(85) NSR 0 (11) 10(A) , No pain 10:39:22 59 14 98 30 107/65(88) NSR 0 (11) 10(A) , No pain 10:43:26 59 12 98 20.3 105/69(86) NSR 0 (11) 10(A) , No pain 10:47:32 61 14 97 0 111/62(89) NSR 0 (11) 9(A) , No pain 10:51:38 59 12 98 39.1 106/63(87) NSR 0 (11) 9(A) , No pain 10:55:46 70 14 92 0 99/56(77) NSR 0 (11) 9(A) , No pain 10:59:49 73 15 93 0 107/59(80) NSR 0 (11) 9(A) , No pain 11:03:57 73 14 93 0 94/57(74) NSR 0 (11) 9(A) , No pain 11:08:01 70 14 94 0 92/57(80) NSR 0 (11) 9(A) , No pain 11:12:02 71 13 95 0 99/59(79) NSR 0 (11) 9(A) , No pain 11:16:04 72 13 96 0 117/63(91) NSR 0 (11) 10(A) , No pain 11:20:12 69 14 94 0 114/66(83) NSR 0 (11) 10(A) , No pain Medications Time Medication Route Dose Verified Delivered Reason Not es Effectiveness by by 10:20:30 Oxygen etCO2 2 l/min Anuel Sykes used for Nasal Tauth Long box annealer cannula 10:20:35 Lidocaine 2% added 20ml Anuel Agee for local to vial Domingo Lane MD anesthetic field 10:20:43 Heparin Flush added 2 bags Anuel Agee used for Bag to Domingo Lane MD procedure (1000units/500ml field NS) 10:20:51 0.9% NaCl I.V. 100 Anuel Buffie Per physician ml/hr Domingo Long RN 10:44:45 Versed I.V. 2 mg Anuel Marieie for sedation Domingo Long RN 10:44:51 Fentanyl I.V. 100 mcg Anuel Sykes for sedation Domingo Long RN 10:49:21 Versed I.V. 2 mg Anuel Marieie for sedation Domingo Long RN 10:49:24 Fentanyl I.V. 100 mcg Anuel Marieie for sedation Domingo Long RN 10:51:37 Radial Cocktail I.A. 1 Anuel Agee for (Verapomil syringe Domingo Lane MD vasodilation 2mg/Nitro 400mcg/Heparin 1500units) 10:57:15 Heparin Bolus I.V. 4000 Anuel Marieie for shauna ified units Domingo Logn RN anticoagulation with dr lane 10:58:27 Integrilin I.V. 8.5 ml Anuel Marieie for Was cesilia (Bolus 2mg/ml) Domingo Long RN antiplatelet 1.5 ml therapy of vial 11:01:20 Versed I.V. 2 mg Anuel Sykes for sedation Domingo Long RN 11:01:23 Fentanyl I.V. 100 mcg Anuel Sykes for sedation Domingo Long RN 11:13:47 Integrilin I.V. 8.5 ml Anuel Marieie for Was cesilia (Bolus 2mg/ml) Domingo Long RN antiplatelet 1.5 ml therapy of vial 11:15:57 Nitroglycerin I.C. 100 mcg Anuel Agee for IC/IA Domingo Lane MD vasodilation 11:17:22 Nitroglycerin I.C. 100 mcg Anuel Agee for IC/IA Domingo Lane MD vasodilation 11:24:52 Plavix P.O. 600 mg Anuel Sykes for Domingo Long RN antiplatelet therapy Procedure Log Time Note 9:38:51 Patient Height : 61 inches 9:38:57 Patient Weight : 214 lbs 9:40:04 Diagnostic Cath status Elective 9:40:06 Cher Luis RT(R) sent for patient. Start room use. 9:40:07 Time tracking: Regular hours (M-F 7:00 - 5:00) 9:40:14 Plan of Care:Hemodynamics will remain stable., Cardiac rhythm will remain stable., Comfort level will be maintained., Respiratory function will remain adequate., Patient/ family verbilizes understanding of procedure., Procedure tolerated without complication., Recovers from procedure without complications.. 9:40:28 Patient received from Pre/Post Procedure Room to CCL 2 Alert and oriented. Tansferred to table in Supine position. 10:05:19 Warm blankets applied, and amparo hugger turned on for patient comfort. 10:05:20 Correct patient and procedure confirmed by team. 10:05:21 Signed procedure consent form obtained from patient. 10:05:22 ECG and BP/O2 sat monitors applied to patient. 10:05:23 Baseline sample Acquired. 10:05:23 Vital chart was started 10:05:26 Rhythm: sinus rhythm 10:05:28 Full Disclosure recording started 10:05:48 H&P Date Dictated: 03/31/2018 Within 30 days and on chart.. 10:05:49 Pre-procedure instructions explained to patient. 10:05:49 Pre-op teaching completed and patient verbalized understanding. 10:05:52 Family in patients room. 10:05:54 Patient NPO since Midnight. 10:06:00 Patient allergic to Codeine 10:06:03 Is the patient allergic to Iodine/contrast media? No. 10:06:21 Was the patient premedicated? No 10:06:22 Is patient on blood thinner?No 10:06:23 Patient diabetic? No. 10:06:25 Previous problem with sedation/anesthesia? No ? 10:06:32 Snore? Yes 10:06:33 Sleep apnea? No 10:06:35 Deviated septum? No 10:06:36 Opens mouth fully? Yes 10:06:37 Sticks out tongue? Yes 10:06:39 Airway obstruction? No ? 10:06:42 Dentures? No ? 10:06:47 Pre procedure: right dorsailis pedis pulse 2+ Normal; easily identifiable; not easily obliterated 10:06:49 Pre procedure: left dorsailis pedis pulse 2+ Normal; easily identifiable; not easily obliterated 10:06:51 Patient pain scale 0/10 ?. 10:06:56 IV patent on arrival in left forearm with 0.9% NaCl at [facility]. 10:06:58 Lab results completed and on chart. 10:07:07 Right Radial & Right Groin area was prepped with chlora-prep and draped in sterile fashion 10:07:08 Alarms reviewed by R. N. 10:07:08 Sharps counted by scrub and verified by R.N. 10:20:30 Oxygen 2 l/min etCO2 Nasal cannula was administered by Mony Long RN; used for procedure; 10:20:35 Lidocaine 2% 20ml vial added to field was administered by Anuel Lane MD; for local anesthetic; 10:20:43 Heparin Flush Bag (1000units/500ml NS) 2 bags added to field was administered by Anuel Lane MD; used for procedure; 10:20:51 0.9% NaCl 100 ml/hr I.V. was administered by Mony Long RN; Per physician; 10:43:43 Physician arrived 10:43:43 --------ALL STOP TIME OUT------ 10:43:44 Final Timeout: patient, procedure, and site verified with staff and physician. All members of the team are in agreement. 10:43:46 Right Radial & Right Groin site verified by team. 10:43:49 Physical assessment completed. ASA score P 2 - A patient with mild systemic disease as per Anuel Lane MD. 10:43:52 Sedation plan: IV Moderate Sedation Medication:Versed, Fentanyl 10:44:22 Use device set Radial Dx or PCI 10:44:23 ACIST Syringe (07373) opened to sterile field. 10:44:24 Medline Cath Pack ([id number]) opened to sterile field. 10:44:24 Bag Decanter (2002) opened to sterile field. 10:44:25 DIAGNOSTIC WIRE .035 260cm J wire (104517) opened to sterile field. 10:44:25 ACIST Hand Control (02882) opened to sterile field. 10:44:26 ACIST Manifold (63425) opened to sterile field. 10:44:26 Tegaderm 4 x 4 (1626W) opened to sterile field. 10:44:27 MBrace Wrist Support ([id number]) opened to sterile field. 10:44:28 SHEATH 6Fr Prelude Radial ([id number]) opened to sterile field. 10:44:34 Procedure started. 10:44:45 Versed 2 mg I.V. was administered by Mony Long RN; for sedation; 10:44:51 Fentanyl 100 mcg I.V. was administered by Mony Long RN; for sedation; 10:49:21 Versed 2 mg I.V. was administered by Mony Long RN; for sedation; 10:49:24 Fentanyl 100 mcg I.V. was administered by Mony Long RN; for sedation; 10:50:33 Local anesthetic to right radial artery with Lidocaine 2% by Anuel Lane MD.INITIAL ACCESS ONLY 10:50:45 A 6 Fr Short sheath was inserted into the Right Radial artery 10:51:25 A DIAGNOSTIC [place] 110cm 5 Fr catheter (207263) was advanced over the wire and used for Multi-vessel Angiography. 10:51:37 Radial Cocktail (Verapomil 2mg/Nitro 400mcg/Heparin 1500units) 1 syringe I.A. was administered by Anuel Lane MD; for vasodilation; 10:52:53 LV hemodynamics recorded. 10:52:54 LV gram done using BRAR 10:52:57 Injector settings: Ml/sec: 5, Volume: 15, 10:53:07 EF : 50 % 10:53:21 RCA angiography performed. 10:53:24 Injector settings: Ml/sec: 3, Volume: 6, 10:53:53 Catheter removed. 10:54:03 GUIDE 6FR XBLAD 3.5 catheter ([id number]) opened to sterile field. 10:55:32 LCA angiography performed. 10:55:34 Injector settings: Ml/sec: 3, Volume: 6, 10:56:55 Proceeding to intervention. 10:57:15 Heparin Bolus 4000 units I.V. was administered by Mony Long RN; for anticoagulation; verified with dr lane 10:57:15 CHOICE PT Extra Support 182cm wire ([id number]) opened to sterile field. 10:57:17 INFLATOR Merit BasixCompak (FQ1226) opened to sterile field. 10:57:57 Catheter removed. 10:58:27 Integrilin (Bolus 2mg/ml) 8.5 ml I.V. was administered by Mony Long RN; for antiplatelet therapy; Wasted 1.5 ml of vial 11:00:11 LASER ELCA 0.9 Rx atherectomy catheter (847343) opened to sterile field. 11:01:20 Versed 2 mg I.V. was administered by Mony Long RN; for sedation; 11:01:23 Fentanyl 100 mcg I.V. was administered by Mony Long RN; for sedation; 11:05:29 6 Fr xblad 3.5 guide catheter was inserted over the wire 11:05:36 choice pt wire advanced. 11:05:55 Laser pass to dLAD with Fluence of 84 and Rate of 40. 11:12:30 Laser catheter removed. 11:13:23 Inflate balloon Inflation number: 1 A EUPHORA 2.0 x 30 Balloon ([id number]) was prepped and advanced across the Dist LAD, then inflated to 13 JANNETH for 0:10 (min:sec). 11:13:37 Inflation number: 2 The EUPHORA 2.0 x 30 Balloon ([id number]) was reinflated across the Dist LAD, to 21 JANNETH for 0:10 (min:sec). 11:13:47 Integrilin (Bolus 2mg/ml) 8.5 ml I.V. was administered by Mony Long RN; for antiplatelet therapy; Wasted 1.5 ml of vial 11:14:01 Inflation number: 1 The EUPHORA 2.0 x 30 Balloon ([id number]) was reinflated across the Mid LAD, to 21 JANNETH for 0:10 (min:sec). 11:14:10 Inflation number: 2 The EUPHORA 2.0 x 30 Balloon ([id number]) was reinflated across the Mid LAD, to 21 JANNETH for 0:10 (min:sec). 11:15:57 Nitroglycerin IC/IA 100 mcg I.C. was administered by Anuel Lane MD; for vasodilation; 11:17:22 Nitroglycerin IC/IA 100 mcg I.C. was administered by Anuel Lane MD; for vasodilation; 11:19:03 Inflation number: 3 The EUPHORA 2.0 x 30 Balloon ([id number]) was reinflated across the Dist LAD, to 19 JANNETH for 0:15 (min:sec). 11:19:42 Inflation number: 4 The EUPHORA 2.0 x 30 Balloon ([id number]) was reinflated across the Dist LAD, to 19 JANNETH for 0:15 (min:sec). 11:20:48 Balloon removed over the wire. 11:20:48 Wire removed. 11:20:48 Guide catheter removed. 11:20:56 TR BAND Standard (CTQ61MRA) opened to sterile field. 11:21:26 Laser total pulses delivered: 2800 11:21:36 Laser total treatment time: 1 minutes 10 seconds 11:22:01 Sheath removed intact; hemostasis achieved with Exoseal to the Right Radial artery. 11:22:03 Procedure ended.(Physican Out) 11::22 Fluoroscopy time 00.00 minutes. 11:22:26 Fluoroscopy dose: 2287 mGy 11:22: Flurop Dose total: 2287 11:22:31 Contrast amount:Isovue 300 110ml. 11:22:33 Sharps counted by scrub and verified by R.N. 11:22:37 TR band inflated with 10cc of air. 11:22:38 Insertion/operative site no bleeding no hematoma. 11:22:42 Post right radial artery:stable 11:22:44 Post Procedure Pulses reassessed and unchanged 11:22:46 Post procedure rhythm: unchanged. 11:22:49 Estimated blood loss: 5 ml 11:22:50 Post procedure instruction explained to patient.Patient verbalizes understanding. 11:22:50 Patient needs reinforcement of post procedure teaching. 11:23:18 Procedure type changed to Cath procedure, Diagnostic procedure, LHC, LHC w/Coronaries, Sedation Charges, Moderate Sedation up to 30 minutes, PCI procedure, Coronary Atherectomy, Atherectomy w/PTCA Coronary Initial 11:23:20 Procedure and supply charges have been captured, reviewed, submitted and are correct. 11:23:25 Procedure Complication : No complications 11:23:27 Vital chart was stopped 11:23:28 See physician's report for complete and final results. 11:23:31 Report given to Pre/Post Procedure Room. 11:23:34 Patient transfered to Pre/Post Procedure Room with Stretcher. 11:23:35 Procedure ended. 11:23:35 Full Disclosure recording stopped 11:23:48 ACC-PCI Only Patient was given prescriptions, or instructed by Anuel Lane MD to start/continue the following medications upon discharge: Plavix 11:23:50 End room use (Document Last) 11:24:52 Plavix 600 mg P.O. was administered by Mony Long RN; for antiplatelet therapy; Intervention Summary Intervention Notes Time ActionType Lesion and Equipment Action# Pressure Duration Attributes Used 11:13:23 Inflate Dist LAD EUPHORA 1 13 00:10 balloon 2.0 x 30 Balloon ([id number]) 11:13:37 Reinflate Dist LAD EUPHORA 2 21 00:10 balloon 2.0 x 30 Balloon ([id number]) 11:14:01 Reinflate Mid LAD EUPHORA 1 21 00:10 balloon 2.0 x 30 Balloon ([id number]) 11:14:10 Reinflate Mid LAD EUPHORA 2 21 00:10 balloon 2.0 x 30 Balloon ([id number]) 11:19:03 Reinflate Dist LAD EUPHORA 3 19 00:15 balloon 2.0 x 30 Balloon ([id number]) 11:19:42 Reinflate Dist LAD EUPHORA 4 19 00:15 balloon 2.0 x 30 Balloon ([id number]) Device Usage Item Name Manufacture Quantity Catalog Number [facility] Part Current M inimal Lot# / Charge Number Stock Stock Serial# Code ACIST Syringe Acist 1 96942 287167 144965 490628 2 0 (59061) [employer] Medline Cath Medline 1 [id number] 452139 12275 241836 5 Pack ([id number]) Bag Decanter Microtek 1 650704 09351 645899 5 () [employer] Inc. DIAGNOSTIC WIRE St Satnam 1 202741 897682 999622 340268 3 0 .035 260cm J wire (952099) ACIST Hand Acist 1 42223 073667 376253 262665 5 Control (99664) [employer] ACIST Manifold Acist 1 45423 425056 918120 082295 5 (27622) [employer] Inc Tegaderm 4 x 4 3M 1 1626W 635097 973541 695878 5 (1626W) MBrace Wrist Advanced 1 140-0250-00 426503 11467 328841 5 Support Vascular ([id number]) Dynamics SHEATH 6Fr Merit 1 [id number] 946424 685145 920294 5 Prelude Radial Medical ([id number]) DIAGNOSTIC Terumo 1 40-8653 385246 029387 437497 5 [place] 110cm 5 Fr catheter (691661) GUIDE 6FR XBLAD Cardinal 1 [id number] 162516 132804 936013 1 0 3.5 catheter [facility] ([id number]) CHOICE PT Extra Danielson 1 [id number] 501942 701535 586042 5 Support 182cm Scientific wire ([id number]) INFLATOR Merit Merit 1 QN8693 603896 664507 567965 1 5 ClearRisk (AT4453) LASER ELCA 0.9 Dany 1 110-004 147919 781398 265949 5 Rx atherectomy [facility] catheter (363500) (767070) EUPHORA 2.0 x Medtronic 1 [id number] 298243 552447 010642 5 [id number] 30 Balloon ([id number]) TR BAND Terumo 1 [id number] 617107 915368 067083 4 0 Standard ([id number]) Signature Audit Dora Stage Time Signature Unsigned Intra-Procedure 04/02/2018 Cher Smith 11:27:35 AM RT(R) Signatures Monitor : Cher Smith RT Signature : Date : Time : [facility] [address] [place] [address]
--- NOTE | ~2018-04-02 | OP ---
PATIENT NAME: PETEY RANGEL MEDICAL RECORD: [id number] :53 LOCATION:D.CAT ADMISSION DATE: SURGEON: ABDI BETANCOURT MD DATE OF OPERATION: 04/02/2018 PROCEDURES: 1. Laser atherectomy LAD. 2. PTCA, LAD. 3. Left heart catheterization. 4. Selective coronary angiography. 5. Left ventriculogram. INDICATION: Angina and coronary artery disease. PROCEDURE PERFORMED: After informed consent was obtained and after a detailed description of risks, benefits as well as alternative therapies, the patient elected to proceed with angiogram and angioplasty. The right radial area was prepped and draped in normal sterile fashion. Right radial artery was cannulated via modified Seldinger technique with placement of 6-Bengali sheath. All catheters exchanged through this sheath. FINDINGS: The left ventriculogram was performed in standard 30-degree BRAR view, reveals good cardiac wall motion throughout all segments. Overall ejection fraction estimated 60%. SELECTIVE CORONARY ANGIOGRAPHY: 1. Left main is with no significant angiographic disease. 2. Left anterior descending has multiple previously placed stents. There is up to 90% in-stent restenosis in the mid distal vessel. 3. Left circumflex has previously placed stent. This is widely patent with no significant restenosis. No disease elsewise throughout the left circumflex or its branches. 4. The right coronary artery has previously placed stents. These are widely patent with no significant restenosis. No disease elsewise throughout the RCA or its branches. PTCA LASER ATHERECTOMY OF THE LAD: Laser catheter was used. Multiple passes were made at 80/40. Balloon angioplasty was done with a 2.0 balloon taken to 21 atmospheres. Result was 0% residual stenosis. OVERALL IMPRESSION: Successful percutaneous transluminal coronary angioplasty laser atherectomy of the left anterior descending going from 90% in-stent restenosis to 0% residual stenosis. TRANSINT:[id number] Voice Confirmation ID: [id number] DOCUMENT ID: [id number] ABDI BETANCOURT MD at 1059 CC: [id number] DICTATION DATE: 04/02/18 1125 CAFE AIDE: 04/02/18 1156 DEP CLI 04/02/18 [place] [id number]
[2018-04-02 08:32] VITALS: BP 120/68; Ht 177.8 cm; Wt 95.5 kg
[2018-04-02 09:41] LABS: BASOPHILS 0.5 % (0-2); EOSINOPHILS 3.1 % (0-7); IMMATURE GRANULOCYTES 0.2 % (0-5); LYMPHOCYTES 38.6 % (15-50); MCH 33.3 pg (26.0-34.0); MCHC 34.9 g/dL (31.0-37.0); MCV 95.6 fL (80.0-100.0); MEAN PLATELET VOLUME 10.4 fL (7.4-10.4); MONOCYTES 9.7 % (2-11); NEUTROPHILS 47.9 % (40-80); PLATELET COUNT 229 10x3/uL (130-400); RDW 12.5 % (11.5-14.5); WBC 5.5 10x3/uL (4.8-10.8)
[2018-04-02 09:50] LABS: CALC OSMOLALITY 276 mosm/kg (275-300); CALCIUM 8.3 mg/dL (8.5-10.1); CARBON DIOXIDE 27.8 mmol/L (21.0-32.0); CHLORIDE - SERUM 104 mmol/L (98-107); CREATININE - SERUM 0.9 mg/dL (0.6-1.3); GLUCOSE 88 mg/dL (74-106); POTASSIUM - SERUM 3.9 mmol/L (3.5-5.1); SODIUM 139 mmol/L (136-145); UREA NITROGEN 13 mg/dL (7-18); eGFR NON AFRICAN AMERICAN > 90 mL/min (90-120)
== END | disposition home or self-care (01) ==
LOC: D.CATH 07:39
PROVIDERS: Internal Medicine Interventional Cardiology
DX: I25.119 Atherosclerotic heart disease of native coronary artery with unspecified angina pectoris (principal); Z01.812 Encounter for preprocedural laboratory examination

== ENCOUNTER 2019-03-01 14:54 | Emergency (ER) | payer BC ==
[~2019-03-01] VITALS: Ht 177.8 cm; Wt 95.9 kg
[~2019-03-01 14:54] MED LIST changes: +REPATHA SY140 MG/1 M SC
[2019-03-01 15:01] VITALS: Ht 177.8 cm; Wt 95.9 kg
[2019-03-01 15:22] LABS: BASOPHILS 0.4 % (0-2); EOSINOPHILS 1.4 % (0-7); HEMATOCRIT 44.5 % (42.0-54.0); HEMOGLOBIN 15.6 g/dL (13.5-17.5); IMMATURE GRANULOCYTES 0.1 % (0-5); MCH 33.3 pg (26.0-34.0); MCHC 35.1 g/dL (31.0-37.0); MCV 94.9 fL (80.0-100.0); MEAN PLATELET VOLUME 9.7 fL (7.4-10.4); MONOCYTES 6.8 % (2-11); NEUTROPHILS 55.3 % (40-80); PLATELET COUNT 268 10x3/uL (130-400); RBC 4.69 10x6/uL (4.20-6.10); RDW 12.3 % (11.5-14.5); WBC 7.7 10x3/uL (4.8-10.8)
[2019-03-01 15:28] LABS: APTT 27.3 SECONDS (22.8-39.4); PROTIME 12.7 SECONDS (11.6-15.0)
[2019-03-01 15:35] LABS: ALBUMIN 3.7 g/dL (3.4-5.0); ALKALINE PHOSPHATASE 46 U/L (46-116); ALT (SGPT) 19 U/L (10-68); BILIRUBIN - TOTAL 0.91 mg/dL (0.2-1.3); CALC OSMOLALITY 279 mosm/kg (275-300); CALCIUM 8.7 mg/dL (8.5-10.1); CARBON DIOXIDE 26.9 mmol/L (21.0-32.0); CHLORIDE - SERUM 103 mmol/L (98-107); CREATININE - SERUM 0.9 mg/dL (0.6-1.3); GLUCOSE 94 mg/dL (74-106); PROTEIN - SERUM 6.9 g/dL (6.4-8.2); SODIUM 139 mmol/L (136-145); UREA NITROGEN 17 mg/dL (7-18); eGFR NON AFRICAN AMERICAN 90 mL/min (90-120)
[2019-03-01 15:47] LABS: CKMB 0.5 U/L (0.0-3.6); CREATINE KINASE 60 UL (21-232)
[2019-03-01 15:51] LABS: TROPONIN-I < 0.017 ng/mL (0.000-0.060)
[2019-03-01] MEDS ORDERED: NORVASC5 MG PO (16:56)
[2019-03-01 17:49] VITALS: BP 111/70
== END 2019-03-01 17:49 | disposition home or self-care (01) ==
LOC: D.ER 14:54
PROVIDERS: Emergency Medicine
DX: I20.9 Angina pectoris, unspecified (principal)